=== PATIENT | female | born 1945 | race Caucasian/White ===

== ENCOUNTER 2023-09-26 03:53 | Observation (INO) | payer MEDICARE ==
[2023-09-26] MEDS ORDERED: NALOXONE 0.4 MG/ML 1 ML VIAL IV PRN (04:29)
--- NOTE | 2023-09-26 04:29 | ED ---
General Adult HPI - General Chief complaint: Recheck/Abnormal Lab/Rx Stated complaint: Peg tube malfunction Time Seen by Provider: 09/26/23 03:55 Source: patient, EMS Mode of arrival: EMS Limitations: no limitations - History of Present Illness Initial comments: 78-year-old female with recent history of ischemic stroke converted to hemorrhagic status post TNK who presents to the emergency department from [facility] on the [place]. She had difficulty with her swallow screen after her stroke and therefore a PEG tube was placed on September 11 at [facility] where she received majority of her care. She was then transferred to [facility] for rehab. It is reported the patient has been taking some food by mouth but is mostly dependent on her feeding tube. She accidentally her tube this evening and it was reported that the physician on-call requested that she be transferred to the hospital she does require this tube. Patient cannot provide much history and therefore majority is obtained from the patient's record as well as discussion with the patient's nurse at [facility]. - Related Data Allergies Allergy/AdvReac Type Severity Reaction Status Date / Time No Known Allergies Allergy Verified 09/26/23 04:03 Review of Systems ROS Statement: Those systems with pertinent positive or pertinent negative responses have been documented in the HPI. ROS Other: All systems not noted in ROS Statement are negative. Past Medical History Past Medical History: CVA/TIA, GERD/Reflux, Hyperlipidemia, Hypertension, Osteoarthritis (OA) History of Any Multi-Drug Resistant Organisms: None Reported Past Psychological History: No Psychological Hx Reported Smoking Status: Never smoker Past Alcohol Use History: None Reported Past Drug Use History: None Reported General Exam Limitations: altered mental status General appearance: alert, in no apparent distress Head exam: Present: atraumatic, normocephalic, normal inspection Eye exam: Present: normal appearance, PERRL, EOMI. Absent: scleral icterus, conjunctival injection, periorbital swelling ENT exam: Present: mucous membranes dry GI/Abdominal exam: Present: other (PEG tube site covered by a bandage. No active bleeding or drainage) Neurological exam: Present: alert, other (confused) Course Vital Signs 09/26/23 09/26/23 03:54 05:21 Temperature 98.3 F Pulse Rate 100 100 Respiratory 19 18 Rate Blood Pressure 130/83 137/95 O2 Sat by Pulse 98 98 Oximetry Medical Decision Making - Medical Decision Making Was pt. sent in by a medical professional or institution (MICHELE Bains, REGISTERED NURSE [employer], urgent care, hospital, or half-way...) When possible be specific @ -Yes patient was sent in by [facility] the [place] Did you speak to anyone other than the patient for history (EMS, parent, family, police, friend...)? What history was obtained from this source @ -Spoke with the patient's nurse at [facility] Did you review nursing and triage notes (agree or disagree)? Why? @ -I reviewed and agree with nursing and triage notes Were old charts reviewed (outside hosp., previous admission, EMS record, old EKG, old radiological studies, urgent care reports/EKG's, half-way records)? Report findings @ -I reviewed the patient's chart from [facility] Differential Diagnosis (chest pain, altered mental status, abdominal pain women, abdominal pain men, vaginal bleeding, weakness, fever, dyspnea, syncope, headache, dizziness, GI bleed, back pain, seizure, CVA, palpatations, mental health, musculoskeletal)? @ -PEG tube dislodgment, malfunctioning PEG tube EKG interpreted by me (3pts min.). @ -Not done X-rays interpreted by me (1pt min.). @ -None done CT interpreted by me (1pt min.). @ -None done U/S interpreted by me (1pt. min.). @ -None done What testing was considered but not performed or refused? (CT, X-rays, U/S, labs)? Why? @ -None What meds were considered but not given or refused? Why? @ -None Did you discuss the management of the patient with other professionals (professionals i.e. MICHELE Bains, [employer]ISTERED NURSE [employer], lab, RT, psych nurse, social secretary, construction checker, teacher, juvenile justice officer, correctional case records supervisor)? Give summary @ -I spoke with Dr. Burks and informed him that the tube was less than 4 weeks old. He agrees that the tube should be replaced in the OR Was smoking cessation discussed for >3mins.? @ -No Was critical care preformed (if so, how long)? @ -No Were there social determinants of health that impacted care today? How? (Homelessness, low income, unemployed, alcoholism, drug addiction, transportation, low edu. Level, literacy, decrease access to med. care, fpc, rehab)? @ -Patient residing at [facility] Was there de-escalation of care discussed even if they declined (Discuss DNR or withdrawal of care, Hospice)? DNR status @ -No What co-morbidities impacted this encounter? (DM, HTN, Smoking, COPD, CAD, C ancer, CVA, ARF, Chemo, Hep., AIDS, mental health diagnosis, sleep apnea, morbid obesity)? @ -CVA Was patient admitted / discharged? Hospital course, mention meds given and route, prescriptions, significant lab abnormalities, going to OR and other pertinent info. @ -Upon arrival patient was placed into room 7. I did review the patient's tr ansfer packet and spoke with the nurse at [facility] who states that the G-tube was placed on September 11. As the tube is less than 4 weeks old I did call and speak with Dr. Burks who states that the patient needs to go to the OR for replacement. Bridging orders are placed for his service. Patient continues to be nothing by mouth Undiagnosed new problem with uncertain prognosis? @ -No Drug Therapy requiring intensive monitoring for toxicity (Heparin, Nitro, Insulin, Cardizem)? @ -No Were any procedures done? @ -No Diagnosis/symptom? @ -Acute PEG tube dislodgment, status post CVA Acute, or Chronic, or Acute on Chronic? @ -Acute Uncomplicated (without systemic symptoms) or Complicated (systemic symptoms)? @ -Uncomplicated Side effects of treatment? @ -No Exacerbation, Progression, or Severe Exacerbation? @ -No Poses a threat to life or bodily function? How? (Chest pain, [place], [place], pneumonia, PE, COPD, DKA, ARF, appy, cholecystitis, CVA, Diverticulitis, Homicidal, Suicidal, threat to staff... and all critical care pts) @ -No Disposition Clinical Impression: PEG tube malfunction Disposition: ADMITTED IP TO THIS [facility] Condition: Stable Is patient prescribed a controlled substance at d/c from ED?: No Time of Disposition: :29 Decision to Admit Reason: Admit from EC Decision Date: 09/26/23 Decision Time: 04:29
[2023-09-26] MEDS ORDERED: PHENYLEPHRINE-0.9% NACL SYG 1,000 MCG/10 ML SYRINGE ONE (07:45)
[2023-09-26] MEDS ORDERED: PROPOFOL 10 MG/ML 20 ML VIAL IV ONE (07:45)
--- NOTE | 2023-09-26 07:52 | P.GSHP ---
History of Present Illness H&P Date: 09/26/23 Chief Complaint: PEG tube malfunction 70-year-old female here after recent stroke. Patient had a PEG tube placed. Unfortunately she was at rehab and accidentally the tube was removed. Patient is confused. No abdominal pain currently. - Review of Systems ROS unobtainable: Reports: due to mental status Past Medical History Past Medical History: CVA/TIA, GERD/Reflux, Hyperlipidemia, Hypertension, Osteoarthritis (OA) History of Any Multi-Drug Resistant Organisms: None Reported Past Psychological History: No Psychological Hx Reported Smoking Status: Never smoker Past Alcohol Use History: None Reported Past Drug Use History: None Reported Medications and Allergies Allergies Allergy/AdvReac Type Severity Reaction Status Date / Time No Known Allergies Allergy Verified 09/26/23 04:03 Surgical - Exam Vital Signs Temp Pulse Resp BP Pulse Ox 98.3 F 100 19 130/83 98 09/26/23 03:54 09/26/23 03:54 09/26/23 03:54 09/26/23 03:54 09/26/23 03:54 Physical exam: General: Well-developed, well-nourished HEENT: Normocephalic, sclerae nonicteric Abdomen: Nontender, nondistended, left upper quadrant PEG tube site Extremities: No edema Neuro: Alert and oriented Assessment and Plan (1) PEG tube malfunction Narrative/Plan: Case was discussed with the ER staff. We'll proceed with EGD and PEG tube repla cement. Consent was obtained from the patient's daughter by phone. Current Visit: Yes Status: Acute Code(s): K94.23 - GASTROSTOMY MALFUNCTION SNOMED Code(s): 536776922
[2023-09-26] MEDS ORDERED: LACTATED RINGERS 1,000 ML IV ONE ×2 (07:54)
--- NOTE | 2023-09-26 08:03 | P.PCN ---
Date of Procedure: 09/26/23 Procedure(s) Performed: Preoperative Dx: PEG tube malfunction Postoperative Dx: Same Procedure: EGD with PEG tube replacement Anesthesia: Sedation Endoscopist: Dr. Burks Specimens: None Endoscopic Procedure: The patient was on the endoscopy table in the left decubitus position. The Olympus gastroscope was inserted into the oropharynx and passed under direct visualization to the region of the third portion of the duodenum. From that point the scope was slowly withdrawn inspecting all surfaces carefully. The PEG tube placement was quite high in the left upper quadrant immediately adjacent to the left costal margin. The defect in the anterior wall the stomach was seen. An 18-Danish balloon replacement tube was able to be replaced without difficulty. The balloon was inflated with 10 mL. The patient had a small hiatal hernia. The remainder the study was normal. The patient was then taken to the recovery room in stable condition per anesthesia guidelines. Recommendations: May resume feeds and medications through PEG tube. May discharge.
[2023-09-26 10:09] VITALS: BP 121/65; PULSE 92; RESP 19; TEMP 97.8
--- NOTE | 2023-09-26 12:46 | P.CONS ---
History of Present Illness - Reason for Consult Consult date: 09/26/23 medical management - History of Present Illness History of present illness; patient 78-year-old lady with past medical history significant for CVA who is currently a resident of a rehab facility who pres ented to the ER for PEG tube dislodgment. Patient PEG tube was placed at [facility], patient is reliant on her nutrition through PEG tube. Patient PEG tube got pulled out accidentally and patient had to be transferred to the ER for PEG tube to be replaced. Patient was admitted to general surgery and plans the patient to undergo PEG tube placement today. Internal medicine were consulted for medical management. Lab work done at time of admission WBC 10.8 hemoglobin 13.9, platelet count 259, sodium 100 0.2, BUNs 19.5, creatinine 0.4, REVIEW OF SYSTEMS: CONSTITUTIONAL: No fever, no malaise, no fatigue. HEENT: No recent visual problems or hearing problems. Denied any sore throat. CARDIOVASCULAR: No chest pain, orthopnea, PND, no palpitations, no syncope. PULMONARY: No shortness of breath, no cough, no hemoptysis. GASTROINTESTINAL: No diarrhea, no nausea, no vomiting, no abdominal pain. NEUROLOGICAL: No headaches, no weakness, no numbness. HEMATOLOGICAL: Denies any bleeding or petechiae. GENITOURINARY: Denies any burning micturition, frequency, or urgency. MUSCULOSKELETAL/RHEUMATOLOGICAL: Denies any joint pain, swelling, or any muscle pain. ENDOCRINE: Denies any polyuria or polydipsia. The rest of the 14-point review of systems is negative. PHYSICAL EXAMINATION: GENERAL: The patient is alert and oriented x3, not in any acute distress. Well developed, well nourished. HEENT: Pupils are round and equally reacting to light. EOMI. No scleral icterus. No conjunctival pallor. Normocephalic, atraumatic. No pharyngeal erythema. No thyromegaly. CARDIOVASCULAR: S1 and S2 present. No murmurs, rubs, or gallops. PULMONARY: Chest is clear to auscultation, no wheezing or crackles. ABDOMEN: Soft, nontender, nondistended, normoactive bowel sounds. No palpable o rganomegaly. MUSCULOSKELETAL: No joint swelling or deformity. EXTREMITIES: No cyanosis, clubbing, or pedal edema. NEUROLOGICAL: Gross neurological examination did not reveal any focal deficits. SKIN: No rashes. Assessment and plan PEG tube dislodgment History of CVA Hyperlipidemia Hypertension Monitor vital signs Monitor CBC Monitor CMP Patient to undergo EGD with PEG tube placement today Resume home meds Gen. surgery following Labs and medication were reviewed.. Continue same treatment. Continue with symptomatic treatment. Resume home medication. Monitor labs and vitals. DVT and GI prophylaxis. Further recommendations as per clinical course of the patient Dictation was produced using [employer] dictation software. please excuse any grammatical, word or spelling errors. Past Medical History Past Medical History: CVA/TIA, GERD/Reflux, Hyperlipidemia, Hypertension, Osteoarthritis (OA) History of Any Multi-Drug Resistant Organisms: None Reported Past Psychological History: No Psychological Hx Reported Smoking Status: Never smoker Past Alcohol Use History: None Reported Past Drug Use History: None Reported Medications and Allergies Home Medications Medication Instructions Recorded Confirmed Type Acetaminophen Tab [Tylenol] 650 mg PO Q6H PRN 09/26/23 09/26/23 History Atorvastatin [Lipitor] 40 mg PEG/G-TUBE HS 09/26/23 09/26/23 History Clotrimazole/Betameth Cream 1 applic TOPICAL Q12H 09/26/23 09/26/23 History [Lotrisone] Docusate Oral Soln [Colace Oral 100 mg PEG/G-TUBE Q12H 09/26/23 09/26/23 History Soln] Famotidine [Pepcid] 20 mg PEG/G-TUBE DAILY 09/26/23 09/26/23 History Metoprolol Tartrate [Lopressor] 25 mg PEG/G-TUBE BID 09/26/23 09/26/23 History Sennosides [Senokot] 8.6 mg PEG/G-TUBE HS 09/26/23 09/26/23 History Allergies Allergy/AdvReac Type Severity Reaction Status Date / Time No Known Allergies Allergy Verified 09/26/23 11:28 Physical Exam Vitals: Vital Signs Temp Pulse Pulse Resp BP BP Pulse Ox 09/26/23 08:43 97.8 F 92 19 121/65 96 09/26/23 05:21 100 18 137/95 98 09/26/23 03:54 98.3 F 100 19 130/83 98 Intake and Output 09/25/23 09/26/23 09/26/23 22:59 06:59 14:59 Intake Total 200 Balance 200 Intake: IV 200 Other: # Voids 1 # Bowel Movements 1 Weight 72.575 kg
[2023-09-26] MEDS ORDERED: DOCUSATE ORAL SOLN 100 MG/10 ML CUP PEG/G-TUBE SCH (13:00)
[2023-09-26] MEDS ORDERED: FAMOTIDINE 20 MG TAB PEG/G-TUBE SCH (13:00)
[2023-09-26] MEDS ORDERED: METOPROLOL TARTRATE 25 MG TAB PEG/G-TUBE SCH (13:00)
[2023-09-26] MEDS ORDERED: ATORVASTATIN 40 MG TAB PEG/G-TUBE SCH (21:00)
[2023-09-26] MEDS ORDERED: SENNOSIDES 8.6 MG TAB PEG/G-TUBE SCH (21:00)
== END 2023-09-26 14:19 ==
LOC: EC 03:53 → 4SSUR 04:29
PROVIDERS: ADMIT Surgery; ATTEND Surgery
DX: K94.23 Gastrostomy malfunction (principal); K44.9 Diaphragmatic hernia without obstruction or gangrene; K21.9 Gastro-esophageal reflux disease without esophagitis; E78.5 Hyperlipidemia, unspecified; I10 Essential (primary) hypertension; Z86.73 Personal history of transient ischemic attack (TIA), and cerebral infarction without residual deficits; Z79.899 Other long term (current) drug therapy
CPT/HCPCS: 99284; 43246; G0378; J2704; J2371

== ENCOUNTER 2023-10-30 12:58 | Inpatient (IN) | payer MEDICARE ==
[2023-10-30] MEDS ORDERED: SODIUM CHLORIDE 0.9% 500 ML 500 ML IV STA (13:03)
--- NOTE | 2023-10-30 13:07 | ED ---
General Adult HPI - General Stated complaint: TIA Time Seen by Provider: 10/30/23 12:58 Source: patient, RN notes reviewed, old records reviewed - History of Present Illness Initial comments: This is a 78-year-old female with past medical history significant for CVA. According to EMS patient was last seen at 9 AM and when EMS arrived family stated that she had droopiness on the right side of her face and slurred speech but that completely resolved before EMSs arrival. Patient then was in the ambulance and started to say she felt a little lightheaded when all of a sudden she started having a seizure and EMS gave the patient 5 of Versed IV. Since then the patient has been unresponsive and unable to tell if this is post ictal or from the Versed or combination. - Related Data Home Medications Medication Instructions Recorded Confirmed Acetaminophen Tab [Tylenol] 650 mg PO Q6H PRN 09/26/23 09/26/23 Atorvastatin [Lipitor] 40 mg PEG/G-TUBE HS 09/26/23 09/26/23 Clotrimazole/Betameth Cream 1 applic TOPICAL Q12H 09/26/23 09/26/23 [Lotrisone] Docusate Oral Soln [Colace Oral 100 mg PEG/G-TUBE Q12H 09/26/23 09/26/23 Soln] Famotidine [Pepcid] 20 mg PEG/G-TUBE DAILY 09/26/23 09/26/23 Metoprolol Tartrate [Lopressor] 25 mg PEG/G-TUBE BID 09/26/23 09/26/23 Sennosides [Senokot] 8.6 mg PEG/G-TUBE HS 09/26/23 09/26/23 Allergies Allergy/AdvReac Type Severity Reaction Status Date / Time No Known Allergies Allergy Verified 09/26/23 11:28 Review of Systems ROS Statement: Those systems with pertinent positive or pertinent negative responses have been documented in the HPI. ROS Other: All systems not noted in ROS Statement are negative. Past Medical History Past Medical History: CVA/TIA, GERD/Reflux, Hyperlipidemia, Hypertension, Osteoarthritis (OA) History of Any Multi-Drug Resistant Organisms: None Reported Past Psychological History: No Psychological Hx Reported Smoking Status: Never smoker Past Alcohol Use History: None Reported Past Drug Use History: None Reported General Exam - General Exam Comments Initial Comments: GENERAL: Patient is well-developed and well-nourished. Patient is nontoxic and well- hydrated and is in no acute distress. ENT: Neck is soft and supple. No significant lymphadenopathy is noted. Oropharynx is clear. Moist mucous membranes. Neck has full range of motion without eliciting any pain. EYES: The sclera were anicteric and conjunctiva were pink and moist. Extraocular movements were intact and pupils were equal round and reactive to light. Eyelids were unremarkable. PULMONARY: Unlabored respirations. Good breath sounds bilaterally. No audible rales rhonchi or wheezing was noted. CARDIOVASCULAR: There is a regular rate and rhythm without any murmurs gallops or rubs. ABDOMEN: Soft and nontender with normal bowel sounds. SKIN: Skin is clear with no lesions or rashes and otherwise unremarkable. NEUROLOGIC: Patient is unresponsive at this time. Cranial nerves II through XII are grossly intact. Motor and sensory are also intact. Normal speech, volume and content. Symmetrical smile. MUSCULOSKELETAL: Normal extremities with adequate strength and full range of motion. No lower extremity swelling or edema. No calf tenderness. LYMPHATICS: No significant lymphadenopathy is noted PSYCHIATRIC: Unable to assess Course Vital Signs 10/30/23 10/30/23 10/30/23 13:01 13:15 13:30 Temperature 96.6 F L Pulse Rate 74 75 66 Respiratory 18 22 20 Rate Blood Pressure 96/70 137/76 O2 Sat by Pulse 90 L 98 100 Oximetry Medical Decision Making - Medical Decision Making EKG is interpreted by myself. EKG shows a sinus rhythm with occasional PAC at 75 bpm NM interval 160 QRS is 89 QT interval 410 QTC is 438. Patient's EKG shows no ST segment elevation or depression. Was pt. sent in by a medical professional or institution (, PA, ENVIRONMENTAL HEALTH TECHNOLOGIST, urgent care, hospital, or prison...) When possible be specific @ -No Did you speak to anyone other than the patient for history (EMS, parent, family, police, friend...)? What history was obtained from this source @ -EMS gave all the history since the patient was unable to speak to us on arrival and no family was with Did you review nursing and triage notes (agree or disagree)? Why? @ -I reviewed and agree with nursing and triage notes Were old charts reviewed (outside hosp., previous admission, EMS record, old EKG, old radiological studies, urgent care reports/EKG's, prison records)? Report findings @ -Others reviewed prior charts with prior laboratories patient Differential Diagnosis (chest pain, altered mental status, abdominal pain women, abdominal pain men, vaginal bleeding, weakness, fever, dyspnea, syncope, headache, dizziness, GI bleed, back pain, seizure, CVA, palpatations, mental health, musculoskeletal)? @ -Differential Seizure: Recurrent seizure disorder, febrile seizure, alcohol withdrawal, stimulants, meningitis, encephalitis, intercranial hemorrhage, intracranial tumor, stroke, eclampsia, thyrotoxicosis, hypocalcemia, hyponatremia, hypernatremia, hypomagnesemia, psychogenic, this is not meant to be an all-inclusive list. EKG interpreted by me (3pts min.). @ -As above X-rays interpreted by me (1pt min.). @ -Chest x-ray shows no acute abnormality CT interpreted by me (1pt min.). @ -CT of the brain shows no acute abnormality. CT angios shows no acute abnormality. U/S interpreted by me (1pt. min.). @ -None done What testing was considered but not performed or refused? (CT, X-rays, U/S, labs)? Why? @ -None What meds were considered but not given or refused? Why? @ -None Did you discuss the management of the patient with other professionals (professionals i.e. , PA, ENVIRONMENTAL HEALTH TECHNOLOGIST, lab, RT, psych nurse, social services technician, motorcycle mechanic, teacher, surveillance dual rate officer, correctional casework specialist)? Give summary @ -[facility]. I spoke with Dr. Estrada and he agreed to see the patient Was smoking cessation discussed for >3mins.? @ -No Was critical care preformed (if so, how long)? @ -No Were there social determinants of health that impacted care today? How? (Homelessness, low income, unemployed, alcoholism, drug addiction, transportation, low edu. Level, literacy, decrease access to med. care, longterm, rehab)? @ -No Was there de-escalation of care discussed even if they declined (Discuss DNR or withdrawal of care, Hospice)? DNR status @ -No What co-morbidities impacted this encounter? (DM, HTN, Smoking, COPD, CAD, Cancer, CVA, ARF, Chemo, Hep., AIDS, mental health diagnosis, sleep apnea, mor bid obesity)? @ -None Was patient admitted / discharged? Hospital course, mention meds given and route, prescriptions, significant lab abnormalities, going to OR and other pertinent info. @ -Patient initially was unresponsive but as the medication wore off and the postictal state resolved she was alert and nourished 4 and without complaints. Patient is an age at this time was 0. [facility] Undiagnosed new problem with uncertain prognosis? @ -No Drug Therapy requiring intensive monitoring for toxicity (Heparin, Nitro, Insulin, Cardizem)? @ -No Were any procedures done? @ -No Diagnosis/symptom? @ -New-onset seizure Acute, or Chronic, or Acute on Chronic? @ -Acute Uncomplicated (without systemic symptoms) or Complicated (systemic symptoms)? @ -Complicated Side effects of treatment? @ -No Exacerbation, Progression, or Severe Exacerbation? @ -No Poses a threat to life or bodily function? How? (Chest pain, [place], DC, pneumonia, PE, COPD, DKA, ARF, appy, cholecystitis, CVA, Diverticulitis, Homicidal, Suicidal, threat to staff... and all critical care pts) @ -Yes this could lead to some end organ dysfunction Diagnosis/symptom? @ -TIA Acute, or Chronic, or Acute on Chronic? @ -Acute Uncomplicated (without systemic symptoms) or Complicated (systemic symptoms)? @ -Complicated Side effects of treatment? @ -none Exacerbation, Progression, or Severe Exacerbation] @ -no Poses a threat to life or bodily function? @ -This could lead to a stroke and morbidity or mortality - Lab Data Result diagrams: 10/30/23 13:08 10/30/23 13:08 Lab Results 10/30/23 10/30/23 10/30/23 Range/Units 13:08 13:08 13:08 WBC 7.6 (3.8-10.6) k/uL RBC 4.42 (3.80-5.40) m/uL Hgb 13.1 (11.4-16.0) gm/dL Hct 40.2 (34.0-46.0) % MCV 91.0 (80.0-100.0) fL MCH 29.6 (25.0-35.0) pg MCHC 32.5 (31.0-37.0) g/dL RDW 14.1 (11.5-15.5) % Plt Count 237 (150-450) k/uL MPV 11.0 Neutrophils % 70 % Lymphocytes % 22 % Monocytes % 4 % Eosinophils % 2 % Basophils % 0 % Neutrophils # 5.3 (1.3-7.7) k/uL Lymphocytes # 1.7 (1.0-4.8) k/uL Monocytes # 0.3 (0-1.0) k/uL Eosinophils # 0.1 (0-0.7) k/uL Basophils # 0.0 (0-0.2) k/uL PT 11.2 (10.0-12.5) sec INR 1.0 (<1.2) APTT 21.7 L (22.0-30.0) sec Sodium 135 L (137-145) mmol/L Potassium 3.5 (3.5-5.1) mmol/L Chloride 105 (98-107) mmol/L Carbon Dioxide 26 (22-30) mmol/L Anion Gap 4 mmol/L BUN 14 (7-17) mg/dL Creatinine 0.32 L (0.52-1.04) mg/dL Est GFR (CKD-EPI)AfAm >90 (>60 ml/min/1.73 sqM) Est GFR (CKD-EPI)NonAf >90 (>60 ml/min/1.73 sqM) Glucose 114 H (74-99) mg/dL Calcium 8.6 (8.4-10.2) mg/dL Total Bilirubin 0.5 (0.2-1.3) mg/dL AST 21 (14-36) U/L ALT 14 (4-34) U/L Alkaline Phosphatase 76 (38-126) U/L Creatine Kinase 28 L (30-135) U/L Troponin I (0.000-0.034) ng/mL Total Protein 6.0 L (6.3-8.2) g/dL Albumin 3.2 L (3.5-5.0) g/dL 10/30/23 Range/Units 13:08 WBC (3.8-10.6) k/uL RBC (3.80-5.40) m/uL Hgb (11.4-16.0) gm/dL Hct (34.0-46.0) % MCV (80.0-100.0) fL MCH (25.0-35.0) pg MCHC (31.0-37.0) g/dL RDW (11.5-15.5) % Plt Count (150-450) k/uL MPV Neutrophils % % Lymphocytes % % Monocytes % % Eosinophils % % Basophils % % Neutrophils # (1.3-7.7) k/uL Lymphocytes # (1.0-4.8) k/uL Monocytes # (0-1.0) k/uL Eosinophils # (0-0.7) k/uL Basophils # (0-0.2) k/uL PT (10.0-12.5) sec INR (<1.2) APTT (22.0-30.0) sec Sodium (137-145) mmol/L Potassium (3.5-5.1) mmol/L Chloride (98-107) mmol/L Carbon Dioxide (22-30) mmol/L Anion Gap mmol/L BUN (7-17) mg/dL Creatinine (0.52-1.04) mg/dL Est GFR (CKD-EPI)AfAm (>60 ml/min/1.73 sqM) Est GFR (CKD-EPI)NonAf (>60 ml/min/1.73 sqM) Glucose (74-99) mg/dL Calcium (8.4-10.2) mg/dL Total Bilirubin (0.2-1.3) mg/dL AST (14-36) U/L ALT (4-34) U/L Alkaline Phosphatase (38-126) U/L Creatine Kinase (30-135) U/L Troponin I <0.012 (0.000-0.034) ng/mL Total Protein (6.3-8.2) g/dL Albumin (3.5-5.0) g/dL Disposition Clinical Impression: Transient cerebral ischemia, New onset seizure Disposition: ADMITTED IP TO THIS [facility] Instructions (If sedation given, give patient instructions): Seizure/Epilepsy Discharge Instructions & Follow-Up Referrals: Omari Soto MD [Primary Care Provider] - 1-2 days Time of Disposition: 14:52
[2023-10-30 13:18] LABS: Basophils % (A) 0 %; Eosinophils # (A) 0.1 k/uL (0-0.7); Eosinophils % (A) 2 %; HCT 40.2 % (34.0-46.0); HGB 13.1 gm/dL (11.4-16.0); Lymphocytes # (A) 1.7 k/uL (1.0-4.8); Lymphocytes % (A) 22 %; MCH 29.6 pg (25.0-35.0); MCHC 32.5 g/dL (31.0-37.0); Monocytes # (A) 0.3 k/uL (0-1.0); Monocytes % (A) 4 %; Neutrophils # (A) 5.3 k/uL (1.3-7.7); Neutrophils % (A) 70 %; Platelet Count 237 k/uL (150-450); RBC 4.42 m/uL (3.80-5.40); RDW 14.1 % (11.5-15.5); WBC 7.6 k/uL (3.8-10.6)
[2023-10-30 13:39] LABS: Prothrombin Time 11.2 sec (10.0-12.5)
[2023-10-30 13:44] LABS: ALT 14 U/L (4-34); AST 21 U/L (14-36); African American GFR (CKD) >90 (>60 ml/min/1.73 sqM); Albumin 3.2 g/dL (3.5-5.0); Alkaline Phosphatase 76 U/L (38-126); Anion Gap 4 mmol/L; Blood Urea Nitrogen 14 mg/dL (7-17); Calcium 8.6 mg/dL (8.4-10.2); Carbon Dioxide 26 mmol/L (22-30); Chloride 105 mmol/L (98-107); Creatine Kinase 28 U/L (30-135); Glucose 114 mg/dL (74-99); Non-African American GFR(CKD) >90 (>60 ml/min/1.73 sqM); Potassium 3.5 mmol/L (3.5-5.1); Sodium 135 mmol/L (137-145); Total Bilirubin 0.5 mg/dL (0.2-1.3)
[2023-10-30 13:46] LABS: Partial Thromboplastin Time 21.7 sec (22.0-30.0)
--- NOTE | 2023-10-30 13:46 | CT ---
EXAMINATION TYPE: CT brain wo con DATE OF EXAM: 10/30/2023 HISTORY: CODE STROKE. Acute onset neuro deficit. CT DLP: 1091.7 mGycm. Automated Exposure Control for Dose Reduction was Utilized. TECHNIQUE: CT scan of the head is performed without contrast. COMPARISON: None. FINDINGS: There is no acute intracranial hemorrhage or midline shift identified. There is mild to m oderate diffuse ventricular and sulcal prominence consistent with diffuse age-related cerebral atroph y. There is old infarct in the right parietal occipital lobe superiorly. The globes are intact and t he visualized sinuses are clear. IMPRESSION: No acute intracranial hemorrhage or midline shift. If clinical concern for acute stroke versus further investigation with MRI study may BE warranted.
--- NOTE | 2023-10-30 14:09 | CT ---
EXAMINATION TYPE: CT angio head neck DATE OF EXAM: 10/30/2023 HISTORY: Neuro deficit, acute stroke suspected. COMPARISON: None. CT DLP: 421.1 mGycm. Automated Exposure Control for Dose Reduction was Utilized. TECHNIQUE: CTA scan of the head and neck is performed without and with IV Contrast, patient injected with 65 ml mL of Isovue 370, axial images are obtained, coronal and sagittal reformatted images are reviewed. 3D reconstructed images are created on an independent workstation and reviewed. FINDINGS: Carotid/Vascular Structures: No significant plaque or stenosis in the arch or the 3 great vessels. Mi ld peripheral calcified plaque right carotid bulb without significant stenosis. More moderate periphe ral calcified plaque left carotid bulb extending into proximal internal carotid artery without signif icant stenosis. Patent external carotid artery without significant stenosis. There is dominant right vertebral artery filling the basilar artery. Distal left vertebral artery is hypoplastic or occluded. No arch vessel occlusion or aneurysm in the posterior circulation. Patent anterior communicating art gustavo. No large vessel occlusion or aneurysm in the anterior circulation Other: Dextro convex scoliosis centered in the thoracic spine. Disc calcification with disc space andrzej rowing at C3-C4 level. Grade 1 anterolisthesis C7 on T1. Mild to moderate spurring and disc space andrzej rowing C5-C6 and C6-C7 level. IMPRESSION: No significant stenosis in common or internal carotid arteries bilaterally. No large ves franck occlusion or aneurysm at the level of the [place]. NASCET criteria was used in interpretation of this exam?
--- NOTE | 2023-10-30 14:13 | XR ---
EXAMINATION TYPE: XR chest 1V DATE OF EXAM: 10/30/2023 COMPARISON: None HISTORY: Altered mental status TECHNIQUE: Single frontal view of the chest is obtained. FINDINGS: There is no focal air space opacity, pleural effusion, or pneumothorax seen. The cardiac silhouette size is within normal limits. The osseous structures are intact. Limited inspiration. At herosclerotic change of the aorta. Degenerative changes of the spine. Diffuse osteopenia. Chronic res orption of the right clavicle with postsurgical changes. Vascular crowding secondary to reduced inspi ration favored over basilar atelectasis. IMPRESSION: No acute process.
[2023-10-30] MEDS ORDERED: SODIUM CHLORIDE 0.9% 1,000 ML IV ONE (14:55)
[2023-10-30] MEDS ORDERED: levETIRAcetam IV 500 MG/5 ML VIAL IVP STA (15:02)
--- NOTE | 2023-10-30 15:18 | P.HPIM ---
History of Present Illness H&P Date: 10/30/23 Chief Complaint: Slurred speech * 78-year-old patient with past medical history significant for CVA, dysphagia status post PEG tube in place,, chronic left upper and lower extremity weakness from previous stroke, hypertension, presents to the emergency department with complains of slurred speech. Patient had symptom onset earlier this morning. Per daughter patient was at [facility] at the [facility] post CVA. Ultimately she was discharged home after insurance ran o ut. Per daughter patient has been significantly improved and was seen by speech therapy outpatient was started on dysphagia diet. Patient not getting any nutrition through PEG tube anymore. * Today patient therapist noted that she was more confused and had some left- sided facial droop and slurred speech. Daughter called her from work and noted that she was slurring. * In 2 to the ER patient had episode of seizure and unresponsiveness and was given Versed by EMS * Patient was accompanied by family at bedside * Workup initiated in ER included CBC which showed normal WBC count hemoglobin and platelet count, INR within normal limits, serum chemistry sodium 135 potassium 3.5 BUN 14 creatinine 0.32 glucose 114 troponin within normal limits * Patient had a CT head, CT angina head and neck done which was negative for large vessel occlusion * Patient was back at her baseline at the time of assessment neurology consulted for further evaluation REVIEW OF SYSTEMS: Slurred speech, facial droop CONSTITUTIONAL: No fever, no malaise, no fatigue. HEENT: No recent visual problems or hearing problems. Denied any sore throat. CARDIOVASCULAR: No chest pain, orthopnea, PND, no palpitations, no syncope. PULMONARY: No shortness of breath, no cough, no hemoptysis. GASTROINTESTINAL: No diarrhea, no nausea, no vomiting, no abdominal pain. NEUROLOGICAL: No headaches, no weakness, no numbness. HEMATOLOGICAL: Denies any bleeding or petechiae. GENITOURINARY: Denies any burning micturition, frequency, or urgency. MUSCULOSKELETAL/RHEUMATOLOGICAL: Denies any joint pain, swelling, or any muscle pain. ENDOCRINE: Denies any polyuria or polydipsia. PHYSICAL EXAMINATION: GENERAL: The patient is alert and oriented x3, nasal cannula in place HEENT: Pupils are round and equally reacting to light. EOMI Normocephalic, atraumatic. No pharyngeal erythema. No thyromegaly. CARDIOVASCULAR: S1 and S2 present. No murmurs, rubs, or gallops. PULMONARY: Chest is clear to auscultation, no wheezing or crackles. ABDOMEN: Soft, nontender, nondistended, normoactive bowel sounds. No palpable organomegaly. MUSCULOSKELETAL: No joint swelling or deformity. EXTREMITIES: No cyanosis, clubbing, or pedal edema. NEUROLOGICAL: Alert and oriented 3, left-sided facial droop noted, motor strength is 0/5 left upper extremity tube of 5 left lower extremity motor strength is 5 x 5 right upper and lower extremity SKIN: No rashes. Past Medical History Past Medical History: CVA/TIA, GERD/Reflux, Hyperlipidemia, Hypertension, Osteoarthritis (OA) History of Any Multi-Drug Resistant Organisms: None Reported Past Psychological History: No Psychological Hx Reported Smoking Status: Never smoker Past Alcohol Use History: None Reported Past Drug Use History: None Reported Medications and Allergies Home Medications Medication Instructions Recorded Confirmed Type Acetaminophen Tab [Tylenol] 650 mg PO Q6H PRN 09/26/23 09/26/23 History Atorvastatin [Lipitor] 40 mg PEG/G-TUBE HS 09/26/23 09/26/23 History Clotrimazole/Betameth Cream 1 applic TOPICAL Q12H 09/26/23 09/26/23 History [Lotrisone] Docusate Oral Soln [Colace Oral 100 mg PEG/G-TUBE Q12H 09/26/23 09/26/23 History Soln] Famotidine [Pepcid] 20 mg PEG/G-TUBE DAILY 09/26/23 09/26/23 History Metoprolol Tartrate [Lopressor] 25 mg PEG/G-TUBE BID 09/26/23 09/26/23 History Sennosides [Senokot] 8.6 mg PEG/G-TUBE HS 09/26/23 09/26/23 History Allergies Allergy/AdvReac Type Severity Reaction Status Date / Time No Known Allergies Allergy Verified 09/26/23 11:28 Physical Exam Vitals: Vital Signs Temp Pulse Resp BP Pulse Ox 10/30/23 13:30 66 20 137/76 100 10/30/23 13:15 75 22 96/70 98 10/30/23 13:01 96.6 F L 74 18 90 L Intake and Output 10/30/23 10/30/23 10/30/23 06:59 14:59 22:59 Other: Weight 71.486 kg Results CBC & Chem 7: 10/30/23 13:08 10/30/23 13:08 Labs: Abnormal Lab Results - Last 24 Hours (Table) 10/30/23 10/30/23 Range/Units 13:08 13:08 APTT 21.7 L (22.0-30.0) sec Sodium 135 L (137-145) mmol/L Creatinine 0.32 L (0.52-1.04) mg/dL Glucose 114 H (74-99) mg/dL Creatine Kinase 28 L (30-135) U/L Total Protein 6.0 L (6.3-8.2) g/dL Albumin 3.2 L (3.5-5.0) g/dL Assessment and Plan Assessment: Assessment and plan * Acute slurred speech History of CVA with rest and left upper and lower extremity weakness * Witnessed seizure per EMS * Hypertension * History of dysphagia status post PEG tube in place * In regards to CVA, continue neuro checks, CT head, CT angina head and neck completed, MRI brain ordered, EEG ordered neurology consulted * In regards to witnessed seizure continue patient on Keppra per neurology EEG ordered * In regards to history of hypertension continue permissive hypertension * Follow-up lipid profile ordered * CODE STATUS is no code Time with Patient: Greater than 30
[2023-10-30] MEDS: SODIUM CHLORIDE 0.9% 1,000 ML IV SCH (15:59)
--- NOTE | 2023-10-30 16:59 | P.CNNES ---
History of Present Illness Consult date: 10/30/23 Requesting physician: Dulce Aviles Reason for Consult: stroke/tia History of Present Illness: This is a 78-year-old woman in the emergency department because of left facial weakness dysarthria that has seizure-like activity. History was obtained from the patient daughter was at bedside. According to the daughter today around 11:45 AM patient had episode of left facial droop with dysarthria then 911 was called and had seizure-like activity during attendance of EMS. She was given 5mg IV Versed by EMS. She does not have seizure in the past. She had history of stroke that lead to bleed after TNK and followed-up with Spencer (Neurologist) and was notified to avoid antiplatelets and anticoagulation because of bleed. 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 Currently per daughter she is doing better compared to earlier. Patient denies of headaches, nausea or vomiting. It seems that the patient had a stroke in August 2023 and she was at [facility] and was given TNK then had bleeding after that and was given reversal. She was then taken to [facility]. Serum glucose 114, sodium is 135, calcium is 8.6. Some of the work-up during this hospital visit consisted of: CBC with differential is unremarkable CT of the head is reported as no acute intracranial hemorrhage or midline shift. If clinical concern for acute stroke versus further investigation with MRI study may be warranted. In the body report it mentions old infarct over the right parietal occipital superiorly. I personally reviewed the CT and agree old stroke over the left parietal>occipital region. There is no acute or subacute ischemia and no bleed. CTA head and neck is reported as no significant stenosis in the common or internal carotid artery bilaterally. No large vessel occlusion or aneurysm at the level [place]. EKG is reported as sinus rhythm with occasional supraventricular premature complexes. Borderline EKG. Seems a code stroke was activated by the ED team and that her symptoms resolved. No IV thrombolytic since symptoms resolved and risk outweigh benefits. Review of Systems The positive and negative as per HPI. Past Medical History Past Medical History: CVA/TIA, GERD/Reflux, Hyperlipidemia, Hypertension, Osteoa rthritis (OA) History of Any Multi-Drug Resistant Organisms: None Reported Past Psychological History: No Psychological Hx Reported Smoking Status: Never smoker Past Alcohol Use History: None Reported Past Drug Use History: None Reported Medications and Allergies Home Medications Medication Instructions Recorded Confirmed Type Atorvastatin [Lipitor] 40 mg PO HS 09/26/23 10/30/23 History Famotidine [Pepcid] 20 mg PO DAILY 09/26/23 10/30/23 History Metoprolol Tartrate [Lopressor] 25 mg PO BID 09/26/23 10/30/23 History Sertraline [Zoloft] 50 mg PO HS 10/30/23 10/30/23 History Allergies Allergy/AdvReac Type Severity Reaction Status Date / Time No Known Allergies Allergy Verified 10/30/23 15:52 Physical Examination - Vital Signs Vital Signs: Vital Signs Temp Pulse Resp BP Pulse Ox 10/30/23 16:00 97.3 F L 65 11 L 119/70 99 10/30/23 15:45 64 12 118/86 99 10/30/23 15:30 66 15 137/74 99 10/30/23 15:15 67 14 120/88 99 10/30/23 15:00 61 11 L 132/78 99 10/30/23 14:45 62 10 L 128/83 100 10/30/23 14:30 68 11 L 130/98 100 10/30/23 14:15 63 9 L 148/79 100 10/30/23 14:00 65 8 L 131/77 99 10/30/23 13:45 64 11 L 137/76 100 10/30/23 13:34 63 13 137/76 100 10/30/23 13:30 66 20 137/76 100 10/30/23 13:15 75 22 96/70 98 10/30/23 13:01 96.6 F L 74 18 90 L Intake and Output 10/30/23 10/30/23 10/30/23 06:59 14:59 22:59 Other: Weight 71.486 kg GENERAL: The patient is lying in bed and is not in acute distress. HENT: Supple neck. NEUROLOGICAL: Higher mental function: The patient is awake, alert, oriented to self and stated she is in the hospital. She is able to name objects (pen and watch). Patient is following simple commands. No aphasia and no neglect. Cranial nerves: The pupils are round, equal and reactive to light. Visual raymundo are full to confrontation throughout. Extraocular movement is intact no nystagmus is noted. Facial sensation is normal to touch throughout. The facial strength is mild left lower facial weakness. Hearing is moderately to severely decreased bilaterally to hand rub. Tongue is midline and moved [id number] without any difficulty. No dysarthria is noted. Shoulder shrug is normal bi laterally. Motor: The strength is left upper extremity is 2-3/5. Left lower proximal is 1, knee and distally is 2-3. Right side 5 over 5 throughout. Increase tone over the left side. Normal bulk. Cerebellum: Normal finger to nose on right. Weak on left so testing deferred. Sensation: Sensation is normal to touch throughout. Reflexes (right/left): brisk on the left. Normal on right. Plantars is mute on right and upgoing on the left. Results - Laboratory Findings CBC and BMP: 10/30/23 13:08 10/30/23 13:08 Abnormal Lab Findings: Abnormal Labs 10/30/23 10/30/23 13:08 13:08 APTT 21.7 L Sodium 135 L Creatinine 0.32 L Glucose 114 H Creatine Kinase 28 L Total Protein 6.0 L Albumin 3.2 L Assessment and Plan Assessment: A 78-year-old woman with history of stroke in August 2023 receive TNK then had hemorrhagic conversion then received reversal with residual left hemiparesis who presents because of dysarthria and left facial droop and later followed by seizures. New onset seizure Episode of dysarthria and left facial droop later followed by seizures: Either due to new onset seizures from cortical irritation from old stroke vs new onset stroke leading to seizure. Current CT shows right parietal > occipital encephalomalacia History of stroke in 08/2023 and received TNK that had hemorrhagic conversion then received reversal with residual left hemiparesis. Hypertension Plan: I ordered an EEG. I started the patient on Keppra 500mg bid even though this is new onset seizure especially since has encephalomalacia that increase risk for seizures. Loaded her with Keppra 1gm once. I resumed her home dose of Lipitor 40mg qhs. I will avoid use of antiplatelets since had history of brain bleed and was instructed by her outpatient neurologist (Dr. Palmer) to avoid them. But will pursue MRI Brain and if does have acute/subacute stroke will consider starting her on low dose ASA 81mg daily if felt benefit outweigh risk. Ordered MRI Brain, 2D echo. Lipid panel is ordered. Seizure precaution and pad Neuro checks Cardiac monitoring PT, OT and CARD PLAYER are consulted. Will defer the rest of medical management to the primary team. The plan is discussed with patient, her daughter who is at bedside and ED physician. Thank you for the consultation. Dr. Knapp will resume neurology service tomorrow A.M. Time with Patient: Greater than 30
--- NOTE | 2023-10-30 18:11 | MR ---
EXAMINATION TYPE: MR brain wo/w con DATE OF EXAM: 10/30/2023 5:02 PM COMPARISON: CT brain 10/30/2023 HISTORY: Left facial droop and dysarthria then seizure. CVA. CONTRAST: Patient received 7 mL intravenous Gadavist gadolinium contrast. Multiplanar and multispin-echo imaging of the brain was performed . Pre and post contrast enhanced i mages are obtained. The ventricles, basal cisterns and sulci overlying the cerebral convexities are mildly to moderately enlarged. There is evidence of mild periventricular white matter ischemic demyelination. Areas of the remote encephalomalacia involving the right parietal and right parieto-occipital region with peripheral hypointensity seen felt to reflect remote insult with peripheral hemosiderin depositi on. On the diffusion weighted data set there are dependent areas of scattered hyperintensity. No acute edema is seen on diffusion weighted imaging. There is no evidence for midline shift or mass effect. Acute intracranial hemorrhage or extra-axial collection is not evident. No enhancing lesions are seen. The paranasal sinuses and mastoid air cells are well-aerated. IMPRESSION: Areas of the remote encephalomalacia involving the right parietal and right parieto-occipital region with peripheral hypointensity seen felt to reflect remote insult/hemorrhage with peripheral hemosider in deposition. On the diffusion weighted data set there are dependent areas of scattered hyperintensi ty.
[2023-10-30] MEDS: levETIRAcetam 500 MG TAB PO SCH (19:44)
[2023-10-30] MEDS: ATORVASTATIN 40 MG TAB PO SCH (19:44)
[2023-10-30] MEDS: HEPARIN SODIUM,PORCINE 5,000 UNIT/ML 1 ML VIAL SQ SCH (19:44)
[2023-10-31] MEDS: SODIUM CHLORIDE 0.9% 1,000 ML IV SCH ×3 (01:12→19:53)
--- NOTE | 2023-10-31 01:59 | EEG ---
ELECTROENCEPHALOGRAM REPORT DATE OF SERVICE: 10/30/2023. CLINICAL HISTORY: This is a 78-year-old woman with a new onset seizure. The video EEG is obtained to evaluate for seizure epileptiform activity. RELEVANT MEDICATION: Versed 5 mg. EEG TYPE: A routine 21-channel EEG with video using the 10/20 electrode placement system. DESCRIPTION: Wakefulness is only obtained. During awake state, the background is asymmetrical, in which the left hemisphere, the background consists of low to moderate voltage, 7 to 8 hertz, while the right consists of 6 to 7 intermixed with delta activity. There was no physiological stage 2 sleep architecture. There is focal slowing over the right hemisphere, predominantly parietal, central, temporal, occipital regions. Interictal and ictal, none. ACTIVATION PROCEDURE: Photic stimulation did not evoke a posterior driving response. There is no abnormality during the photic stimulation. Hyperventilation is not performed. CLINICAL INTERPRETATION: This is an abnormal routine EEG. The background is asymmetrical, in which the left hemisphere is mild encephalopathic, while the right is mild to moderate. There is focal slowing over the right hemisphere suggestive of focal cerebral dysfunction. There is no epileptiform discharge, or seizure on the EEG. Clinical correlation is recommended. MMODL / IJN: [id number] /
[2023-10-31] MEDS: levETIRAcetam 500 MG TAB PO SCH ×2 (08:27→19:40)
[2023-10-31] MEDS: HEPARIN SODIUM,PORCINE 5,000 UNIT/ML 1 ML VIAL SQ SCH ×2 (08:27→19:40)
[2023-10-31] MEDS ORDERED: ACETAMINOPHEN TAB 325 MG TAB PO PRN (09:12)
[2023-10-31] MEDS: FAMOTIDINE 20 MG TAB PO SCH (12:19)
[2023-10-31] MEDS: METOPROLOL TARTRATE 25 MG TAB PO SCH ×2 (12:19→19:40)
[2023-10-31 12:36] LABS: LDL Cholesterol,Calculated 43.3 mg/dL (0.0-131.0)
--- NOTE | 2023-10-31 13:02 | P.PN ---
Subjective Progress Note Date: 10/31/23 * 78-year-old patient with past medical history significant for CVA, dysphagia status post PEG tube in place,, chronic left upper and lower extremity weakness from previous stroke, hypertension, presents to the emergency department with complains of slurred speech. Patient had symptom onset earlier this morning. Per daughter patient was at [facility] at the [facility] post CVA. Ultimately she was discharged home after insurance ran out. Per daughter patient has been significantly improved and was seen by speech therapy outpatient was started on dysphagia diet. Patient not getting any nutrition through PEG tube anymore. * Today patient therapist noted that she was more confused and had some left- sided facial droop and slurred speech. Daughter called her from work and noted that she was slurring. * In 2 to the ER patient had episode of seizure and unresponsiveness and was given Versed by EMS * Patient was accompanied by family at bedside * Workup initiated in ER included CBC which showed normal WBC count hemoglobin and platelet count, INR within normal limits, serum chemistry sodium 135 potassium 3.5 BUN 14 creatinine 0.32 glucose 114 troponin within normal limits * Patient had a CT head, CT angina head and neck done which was negative for large vessel occlusion * Patient was back at her baseline at the time of assessment neurology consulted for further evaluation * 10/31/2023: Patient seen and evaluated at bedside, patient appears at baseline, MRI brain reviewed, continue patient on IV hydration, patient has been seizure-free REVIEW OF SYSTEMS: Slurred speech resolved, facial droop resolved CONSTITUTIONAL: No fever, no malaise, no fatigue. HEENT: No recent visual problems or hearing problems. Denied any sore throat. CARDIOVASCULAR: No chest pain, orthopnea, PND, no palpitations, no syncope. PULMONARY: No shortness of breath, no cough, no hemoptysis. GASTROINTESTINAL: No diarrhea, no nausea, no vomiting, no abdominal pain. NEUROLOGICAL: No headaches, no weakness, no numbness. HEMATOLOGICAL: Denies any bleeding or petechiae. GENITOURINARY: Denies any burning micturition, frequency, or urgency. MUSCULOSKELETAL/RHEUMATOLOGICAL: Denies any joint pain, swelling, or any muscle pain. ENDOCRINE: Denies any polyuria or polydipsia. PHYSICAL EXAMINATION: GENERAL: The patient is alert and oriented x3, nasal cannula in place HEENT: Pupils are round and equally reacting to light. EOMI Normocephalic, atraumatic. No pharyngeal erythema. No thyromegaly. CARDIOVASCULAR: S1 and S2 present. No murmurs, rubs, or gallops. PULMONARY: Chest is clear to auscultation, no wheezing or crackles. ABDOMEN: Soft, nontender, nondistended, normoactive bowel sounds. No palpable organomegaly. MUSCULOSKELETAL: No joint swelling or deformity. EXTREMITIES: No cyanosis, clubbing, or pedal edema. NEUROLOGICAL: Alert and oriented 3, left-sided facial droop noted, motor strength is 0/5 left upper extremity, 2/ 5 left lower extremity motor strength is 5 x 5 right upper and lower extremity SKIN: No rashes. Objective - Vital Signs Vital signs: Vital Signs Temp 98.1 F 10/31/23 04:00 Pulse 70 10/31/23 12:20 Resp 16 10/31/23 12:20 BP 106/57 10/31/23 12:20 Pulse Ox 97 10/31/23 12:20 FiO2 Intake & Output 10/30/23 10/31/23 10/31/23 18:59 06:59 18:59 Intake Total 210 Output Total 300 0 Balance -300 210 Weight 71.486 kg Intake: IV 10 Invasive Line 1 10 Oral 200 Output: Urine 300 0 Other: # Voids 2 # Bowel Movements 1 1 - Labs CBC & Chem 7: 10/30/23 13:08 10/30/23 13:08 Labs: Abnormal Lab Results - Last 24 Hours (Table) 10/30/23 10/30/23 10/30/23 Range/Units 13:08 13:08 13:08 APTT 21.7 L (22.0-30.0) sec Sodium 135 L (137-145) mmol/L Creatinine 0.32 L (0.52-1.04) mg/dL Glucose 114 H (74-99) mg/dL Creatine Kinase 28 L (30-135) U/L Total Protein 6.0 L (6.3-8.2) g/dL Albumin 3.2 L (3.5-5.0) g/dL HDL Cholesterol 39.30 L (40.00-60.00) mg/dL Assessment and Plan Assessment: Assessment and plan * Acute slurred speech History of CVA with rest and left upper and lower extremity weakness * Witnessed seizure per EMS * Hypertension * History of dysphagia status post PEG tube in place * In regards to CVA, continue neuro checks, CT head, CT angina head and neck completed, MRI brain completed shows areas of remote encephalomalacia in the right parietal and right parieto-occipital region with hyperintensity seen and felt to reflect remote insult/MH with peripheral hemosiderin deposit * EEG ordered neurology consulted * In regards to witnessed seizure continue patient on Keppra per neurology EEG completed * In regards to history of hypertension , and tinea metoprolol * Follow-up lipid profile reviewed * Will need physical therapy occupational therapy evaluation * CODE STATUS is no code
--- NOTE | 2023-10-31 14:25 | P.PN ---
Subjective Progress Note Date: 10/31/23 The pt is a 78 y/o female who is seen in neurologic follow up on 2023, in collaboration with Janak Arenas, via teleneurology. The chart has been reviewed. The pt reportedly presented to the ER with left facial droop and slurred speech. She was also somewhat confused. The pt reportedly had a seizure while EMS was present. She was given Versed and brought to the ER. The pt has a history of right sided stroke, occurring around Thanksgiving time. The pt has residual left sided weakness. The infarct also involved hemorrhage following receiving TNK. EEG was performed yesterday. It was negative for seizure acitivity. MRI revealed no acute infarct. Objective - Vital Signs Vital signs: Vital Signs Temp 98.1 F 10/31/23 04:00 Pulse 70 10/31/23 12:20 Resp 16 10/31/23 12:20 BP 106/57 10/31/23 12:20 Pulse Ox 97 10/31/23 12:20 FiO2 Intake & Output 10/30/23 10/31/23 10/31/23 18:59 06:59 18:59 Intake Total 210 Output Total 300 0 Balance -300 210 Weight 71.486 kg Intake: IV 10 Invasive Line 1 10 Oral 200 Output: Urine 300 0 Other: # Voids 2 # Bowel Movements 1 1 - Exam General: The pt is reclining in the bed. She is well nourished and in no distress. She does report hip pain HEENT: Head is atraumatic, normocephalic. There is no scleral icterus. Fundus no visualized. Mucous membranes moist Neurological Exam Mental status: The pt is awake, alert and oriented x3. Speech is clear. There is no dysarthria or aphasia. Cranial nerves: Pupils are equal at 2mm and reactive. Visual raymundo full. EOMI. Facial sensation intact. No facial asymmetry. Hearing grossly intact. Shoulder shrug diminished on the left. Tongue protrudes midline. Motor: Right upper extremity strength 5/5. Left home based assistant 3-4/5. Triceps 3/5 - Labs CBC & Chem 7: 10/30/23 13:08 10/30/23 13:08 Labs: Abnormal Lab Results - Last 24 Hours (Table) 10/30/23 Range/Units 13:08 HDL Cholesterol 39.30 L (40.00-60.00) mg/dL Assessment and Plan Assessment: A 78-year-old woman with history of stroke in August 2023 receive TNK then had hemorrhagic conversion then received reversal with residual left hemiparesis who presents because of dysarthria and left facial droop and later followed by seizures. New onset seizure Episode of dysarthria and left facial droop later followed by seizures: Either due to new onset seizures from cortical irritation from old stroke vs new onset stroke leading to seizure. Current CT shows right parietal > occipital encephalomalacia History of stroke in 08/2023 and received TNK that had hemorrhagic conversion then received reversal with residual left hemiparesis. Hypertension Plan: 1. Stroke work up has been ordered 2. Continue Keppra 3. MRI negative for acute infarct 4. Await further test result 5. Continue seizure precautions Time with Patient: Less than 30
[2023-10-31] MEDS: ATORVASTATIN 40 MG TAB PO SCH (19:40)
[2023-10-31] MEDS: SERTRALINE 50 MG TAB PO SCH (19:40)
[2023-11-01] MEDS: SODIUM CHLORIDE 0.9% 1,000 ML IV SCH ×2 (04:46→19:14)
[2023-11-01] MEDS: HEPARIN SODIUM,PORCINE 5,000 UNIT/ML 1 ML VIAL SQ SCH ×2 (08:32→21:36)
[2023-11-01] MEDS: FAMOTIDINE 20 MG TAB PO SCH (08:32)
[2023-11-01] MEDS: METOPROLOL TARTRATE 25 MG TAB PO SCH ×2 (08:32→21:36)
[2023-11-01] MEDS: levETIRAcetam 500 MG TAB PO SCH ×2 (08:32→21:36)
[2023-11-01 09:51] LABS: HCT 35.2 % (34.0-46.0); HGB 11.6 gm/dL (11.4-16.0); MCHC 32.9 g/dL (31.0-37.0); MCV 91.1 fL (80.0-100.0); Mean Platelet Volume 8.6; Platelet Count 265 k/uL (150-450); RBC 3.87 m/uL (3.80-5.40); WBC 5.1 k/uL (3.8-10.6)
[2023-11-01 10:21] LABS: African American GFR (CKD) >90 (>60 ml/min/1.73 sqM); Anion Gap 5 mmol/L; Blood Urea Nitrogen 13 mg/dL (7-17); Calcium 8.3 mg/dL (8.4-10.2); Carbon Dioxide 28 mmol/L (22-30); Chloride 105 mmol/L (98-107); Glucose 96 mg/dL (74-99); Non-African American GFR(CKD) >90 (>60 ml/min/1.73 sqM); Potassium 3.3 mmol/L (3.5-5.1); Sodium 138 mmol/L (137-145)
[2023-11-01] MEDS ORDERED: POTASSIUM CHLORIDE ER 20 MEQ TAB.ER PO STA (11:30)
--- NOTE | 2023-11-01 11:31 | CA ---
Transthoracic Echo Report Name: Opal Mejia Age: 78 Gender: F : 1945 Exam Date: 10/31/2023 10:31 Exam Location: [facility] Ht (in): 66 Wt (lb): 157 Ordering Physician: Sanju Cain MD Attending/Referring Phys: Assistant Professor Of Dietetics Adriana Carver RD Procedure CPT: Indications: stroke Cardiac Hx: Technical Quality: Technically difficult study Contrast 1: Total Dose (mL): Contrast 2: Total Dose (mL): MEASUREMENTS (Male / Female) Normal Values 2D ECHO LV Diastolic Diameter PLAX 4.7 cm 4.2 - 5.9 / 3.9 - 5.3 cm LV Systolic Diameter PLAX 3.7 cm IVS Diastolic Thickness 0.7 cm 0.6 - 1.0 / 0.6 - 0.9 cm LVPW Diastolic Thickness 1.0 cm 0.6 - 1.0 / 0.6 - 0.9 cm LV Relative Wall Thickness 0.3 RV Internal Dim ED PLAX 2.7 cm LVOT Diameter 2.0 cm Aortic Root Diameter 2.8 cm LA Systolic Diameter LX 3.1 cm 3.0 - 4.0 / 2.7 - 3.8 cm LV Diastolic Volume MOD BP 46.1 cm??? 67 - 155 / 56 - 104 cm??? LV Systolic Volume MOD BP 17.5 cm??? 22 - 58 / 19 - 49 cm??? LV Ejection Fraction MOD BP 62.0 % >= 55 % LV Cardiac Index MOD BP 779.5 cm???/min???m??? LV Diastolic Volume MOD 4C 55.9 cm??? LV Systolic Volume MOD 4C 17.2 cm??? LV Ejection Fraction MOD 4C 69.2 % LV Cardiac Index MOD 4C 1054.7 cm???/min???m??? LV Diastolic Length 4C 6.7 cm LV Systolic Length 4C 5.7 cm LV Diastolic Volume MOD 2C 33.1 cm??? LV Systolic Volume MOD 2C 17.7 cm??? LV Ejection Fraction MOD 2C 46.5 % LV Cardiac Index MOD 2C 420.0 cm???/min???m??? LV Diastolic Length 2C 5.9 cm LV Systolic Length 2C 5.7 cm LA Volume 34.9 cm??? 18 - 58 / 22 - 52 cm??? LA Volume Index 19.0 cm???/m??? 16 - 28 cm???/m??? DOPPLER LVOT Peak Velocity 76.2 cm/s LVOT Peak Gradient 2.3 mmHg LVOT Velocity Time Integral 16.8 cm LVOT Stroke Volume 50.8 cm??? LVOT Stroke Volume Index 28.1 ml/m??? LVOT Cardiac Index 1385.5 cm???/min???m??? MV Peak Velocity 104.6 cm/s MV Peak Gradient 4.4 mmHg MV Mean Velocity 58.7 cm/s MV Mean Gradient 1.6 mmHg MV Velocity Time Integral 35.8 cm Mitral E Point Velocity 83.1 cm/s Mitral A Point Velocity 105.8 cm/s Mitral E to A Ratio 0.8 MV Deceleration Time 263.3 ms MV E' Velocity 5.0 cm/s Mitral E to MV E' Ratio 16.6 TR Peak Velocity 193.2 cm/s TR Peak Gradient 14.9 mmHg Right Ventricular Systolic Press 20.2 mmHg PV Peak Velocity 92.2 cm/s PV Peak Gradient 3.4 mmHg FINDINGS Left Ventricle Normal LV size and wall thickness. Left ventricular ejection fraction is estimated at 50-55 %. Right Ventricle Normal right ventricular size. RVSP= 24mmHg. Right Atrium Normal right atrial size. Left Atrium Normal left atrial size. Mitral Valve Structurally normal mitral valve. Trace MR. Aortic Valve Mildly calcified AV. Mild AI. Tricuspid Valve Structurally normal tricuspid valve. Mild TR. Pulmonic Valve Pulmonic valve not well visualized. Mild PI. Pericardium Normal pericardium. Aorta Normal size aortic root. CONCLUSIONS Technically limited views. Poor quality images LVEF 55% No significant wall motion abnormality MR, mild aortic insufficiency, calcific aortic valve Trace pericardial effusion Previewed by: Dr Molina Booker (Electronically Signed) Final Date: 01 November 2023 11:30
--- NOTE | 2023-11-01 11:32 | P.PN ---
Subjective Progress Note Date: 11/01/23 * 78-year-old patient with past medical history significant for CVA, dysphagia status post PEG tube in place,, chronic left upper and lower extremity weakness from previous stroke, hypertension, presents to the emergency department with complains of slurred speech. Patient had symptom onset earlier this morning. Per daughter patient was at [facility] at the [facility] post CVA. Ultimately she was discharged home after insurance ran out. Per daughter patient has been significantly improved and was seen by speech therapy outpatient was started on dysphagia diet. Patient not getting any nutrition through PEG tube anymore. * Today patient therapist noted that she was more confused and had some left- sided facial droop and slurred speech. Daughter called her from work and noted that she was slurring. * In 2 to the ER patient had episode of seizure and unresponsiveness and was given Versed by EMS * Patient was accompanied by family at bedside * Workup initiated in ER included CBC which showed normal WBC count hemoglobin and platelet count, INR within normal limits, serum chemistry sodium 135 potassium 3.5 BUN 14 creatinine 0.32 glucose 114 troponin within normal limits * Patient had a CT head, CT angina head and neck done which was negative for large vessel occlusion * Patient was back at her baseline at the time of assessment neurology consulted for further evaluation * 10/31/2023: Patient seen and evaluated at bedside, patient appears at baseline, MRI brain reviewed, continue patient on IV hydration, patient has been seizure-free * 11/01/2023: patient seen and evaluated at bedside, patient will need physical therapy occupational therapy evaluation for placement, discussed with patient daughter day would like patient to go to subacute rehab if possible. At this time continue patient on current antiseizure medications which will be continued at the time of discharge. Defer initiation of antiplatelet to Neurology . Potassium replaced. Patient would need to go to subacute rehab. Patient does not want to go back to [facility]. Echocardiogram pending REVIEW OF SYSTEMS: Slurred speech resolved, facial droop resolved CONSTITUTIONAL: No fever, no malaise, no fatigue. HEENT: No recent visual problems or hearing problems. Denied any sore throat. CARDIOVASCULAR: No chest pain, orthopnea, PND, no palpitations, no syncope. PULMONARY: No shortness of breath, no cough, no hemoptysis. GASTROINTESTINAL: No diarrhea, no nausea, no vomiting, no abdominal pain. NEUROLOGICAL: No headaches, no weakness, no numbness. HEMATOLOGICAL: Denies any bleeding or petechiae. GENITOURINARY: Denies any burning micturition, frequency, or urgency. MUSCULOSKELETAL/RHEUMATOLOGICAL: Denies any joint pain, swelling, or any muscle pain. ENDOCRINE: Denies any polyuria or polydipsia. PHYSICAL EXAMINATION: GENERAL: The patient is alert and oriented x3, nasal cannula in place HEENT: Pupils are round and equally reacting to light. EOMI Normocephalic, atraumatic. No pharyngeal erythema. No thyromegaly. CARDIOVASCULAR: S1 and S2 present. No murmurs, rubs, or gallops. PULMONARY: Chest is clear to auscultation, no wheezing or crackles. ABDOMEN: Soft, nontender, nondistended, normoactive bowel sounds. No palpable organomegaly. MUSCULOSKELETAL: No joint swelling or deformity. EXTREMITIES: No cyanosis, clubbing, or pedal edema. NEUROLOGICAL: Alert and oriented 3, left-sided facial droop noted on admission IMPROVED , motor strength is 0/5 left upper extremity CHRONIC , 2/ 5 left lower extremity CHRONIC from PREVIOUS CVA motor strength is 5 x 5 right upper and lower extremity SKIN: No rashes. Objective - Vital Signs Vital signs: Vital Signs Temp 97.7 F 10/31/23 23:13 Pulse 73 10/31/23 23:13 Resp 17 10/31/23 23:13 BP 104/67 10/31/23 23:13 Pulse Ox 99 10/31/23 23:13 FiO2 Intake & Output 10/31/23 10/31/23 11/01/23 06:59 18:59 06:59 Intake Total 328 Output Total 300 300 Balance -300 28 Intake: IV 10 Invasive Line 1 10 Oral 318 Output: Urine 300 300 Other: # Voids 2 # Bowel Movements 1 1 1 - Labs CBC & Chem 7: 11/01/23 09:25 11/01/23 09:25 Labs: Abnormal Lab Results - Last 24 Hours (Table) 10/30/23 Range/Units 13:08 HDL Cholesterol 39.30 L (40.00-60.00) mg/dL Assessment and Plan Assessment: Assessment and plan * Acute slurred speech with History of CVA with residual left upper and lower extremity weakness resolved>> stroke recrudesce * Witnessed seizure per EMS * Hypertension * History of dysphagia status post PEG tube in place * In regards to CVA, continue neuro checks, CT head, CT angina head and neck completed, MRI brain completed shows areas of remote encephalomalacia in the right parietal and right parieto-occipital region with hyperintensity seen and felt to reflect remote insult/MH with peripheral hemosiderin deposit>> continue Lipitor, defer antiplatelet initiation to Neurology * EEG completed no epileptiform activity noted however EEG abnormalities noted consistent with cerebral dysfunction * In regards to witnessed seizure continue patient on Keppra per neurology EEG completed * In regards to history of hypertension continue metoprolol * Follow-up lipid profile reviewed * Will need physical therapy occupational therapy evaluation>> in regards to disposition family would want patient to go back to subacute rehab if insurance approval obtained * CODE STATUS is no code Time with Patient: Greater than 30
[2023-11-01] MEDS ORDERED: NYSTATIN 100,000 UNIT/GM POWD 15 GM TOPICAL PRN (14:31)
[2023-11-01] MEDS: SERTRALINE 50 MG TAB PO SCH (21:35)
[2023-11-01] MEDS: ATORVASTATIN 40 MG TAB PO SCH (21:36)
[2023-11-02 06:48] LABS: HCT 35.6 % (34.0-46.0); HGB 12.1 gm/dL (11.4-16.0); MCH 30.5 pg (25.0-35.0); MCHC 33.8 g/dL (31.0-37.0); MCV 90.1 fL (80.0-100.0); Mean Platelet Volume 9.5; Platelet Count 258 k/uL (150-450); RBC 3.95 m/uL (3.80-5.40); WBC 6.1 k/uL (3.8-10.6)
[2023-11-02 07:12] LABS: African American GFR (CKD) >90 (>60 ml/min/1.73 sqM); Anion Gap 3 mmol/L; Blood Urea Nitrogen 6 mg/dL (7-17); Calcium 8.4 mg/dL (8.4-10.2); Carbon Dioxide 27 mmol/L (22-30); Chloride 106 mmol/L (98-107); Glucose 98 mg/dL (74-99); Magnesium 1.9 mg/dL (1.6-2.3); Non-African American GFR(CKD) >90 (>60 ml/min/1.73 sqM); Potassium 3.1 mmol/L (3.5-5.1); Sodium 136 mmol/L (137-145)
[2023-11-02] MEDS: FAMOTIDINE 20 MG TAB PO SCH (09:58)
[2023-11-02] MEDS: POTASSIUM CHLORIDE ER 20 MEQ TAB.ER PO SCH ×2 (09:58→12:33)
[2023-11-02] MEDS: METOPROLOL TARTRATE 25 MG TAB PO SCH ×2 (09:58→20:44)
[2023-11-02] MEDS: HEPARIN SODIUM,PORCINE 5,000 UNIT/ML 1 ML VIAL SQ SCH ×2 (09:58→20:44)
[2023-11-02] MEDS: levETIRAcetam 500 MG TAB PO SCH ×2 (09:58→20:44)
[2023-11-02] MEDS: SODIUM CHLORIDE 0.9% 1,000 ML IV SCH (13:21)
--- NOTE | 2023-11-02 15:02 | P.PN ---
Subjective Progress Note Date: 11/02/23 This is a pleasant 78-year-old female who comes to the hospital with confusion slurred speech and worsening left-sided deficits. Patient has a history of stroke back in August 2023 and she ended with a hemorrhagic conversion after receiving TN K. Patient was noted by EMS who brought her to the hospital to be having seizure-like activity. Neurology has started her on oral Keppra and there has been no further seizure-like episodes. Her EEG was negative for seizure or epileptiform activity. Her brain MRI was showing a remote insult/hemorrhage with peripheral hemosiderin deposit. Echocardiogram showing an EF of 55% with trace pericardial effusion. She is maintained on statin therapy however she is felt to not be a candidate for any antiplatelet or anticoagulants because of the prior bleed. She does have residual left hemiparesis and today patient feels like she is at her baseline. Altered mentation has improved. She continues with PEG tube and TPN she is also on a heart healthy diet. Review of Systems Constitutional: Denied any fatigue denied any fever. Cardio vascular: denied any chest pain, palpitations Gastrointestinal: denied any nausea, vomiting, diarrhea Pulmonary: Denied any shortness of breath cough Neurologic denied any new focal deficits left-sided hemiparesis All inpatient medications were reviewed and appropriate changes in these medications as dictated in the interval history and assessment and plan. PHYSICAL EXAMINATION: GENERAL: The patient is alert and oriented x3, not in any acute distress. Well developed, well nourished. HEENT: Pupils are round and equally reacting to light. EOMI. No scleral icterus. No conjunctival pallor. Normocephalic, atraumatic. No pharyngeal erythema. No thyromegaly. CARDIOVASCULAR: S1 and S2 present. No murmurs, rubs, or gallops. PULMONARY: Chest is clear to auscultation, no wheezing or crackles. ABDOMEN: Soft, nontender, nondistended, normoactive bowel sounds. No palpable organomegaly. MUSCULOSKELETAL: No joint swelling or deformity. EXTREMITIES: No cyanosis, clubbing, or pedal edema. NEUROLOGICAL: Gross neurological examination did not reveal any focal deficits. Left-sided hemiparesis SKIN: No rashes. Assessment and Plan -Acute slurred speech with History of CVA with residual left hemiparesis; the slurred speech has resolve and pt feels deficits are back to baseline. stroke reoccurance. Neurology following not a candidated for anticoagulation/antiplatelet by her neurologist due to prior hemorrhagic conversion of the stroke back in 08/2023. -Witnessed seizure per EMS, neurology following and patient has been started on oral keppra. -Hypertension maintained on metoprolol -History of dysphagia status post PEG tube in place patient also continues on heart healthy diet -Weakness PT/OT following and patient requires subacute rehab on discharge pending authorization for DC to [facility] -Gastroesophageal reflux disease -Hyperlipidemia maintained on statin therapy -Depression GI prophylaxis DVT prophylaxis deferred will use mechanical Do Not Resuscitate/Do Not Intubate The impression and plan of care has been dictated by Karmen Gates Nurse Practitioner as directed. Dr. Les MD I have performed a history and physical examination and medical decision making of this patient, discussed the same with the dictator, and agree with the dictators assessment and plan as written, documented as a scribe. Based on total visit time, I have performed more than 50% of this visit. Objective - Vital Signs Vital signs: Vital Signs Temp 98.2 F 11/02/23 09:03 Pulse 66 11/02/23 09:03 Resp 16 11/02/23 09:03 BP 106/70 11/02/23 09:03 Pulse Ox 94 L 11/02/23 09:03 FiO2 Intake & Output 11/01/23 11/02/23 11/02/23 18:59 06:59 18:59 Intake Total 118 Output Total 500 Balance -500 118 Intake: Oral 118 Output: Urine 500 Other: Voiding Method External Catheter # Voids 1 # Bowel Movements 1 - Labs CBC & Chem 7: 11/02/23 06:29 11/02/23 06:29 Labs: Abnormal Lab Results - Last 24 Hours (Table) 11/01/23 11/02/23 Range/Units 09:25 06:29 Sodium 136 L (137-145) mmol/L Potassium 3.3 L 3.1 L (3.5-5.1) mmol/L BUN 6 L (7-17) mg/dL Creatinine 0.28 L 0.27 L (0.52-1.04) mg/dL Calcium 8.3 L (8.4-10.2) mg/dL Assessment and Plan Time with Patient: Less than 30
[2023-11-02] MEDS: ATORVASTATIN 40 MG TAB PO SCH (20:44)
[2023-11-02] MEDS: SERTRALINE 50 MG TAB PO SCH (20:44)
[2023-11-03 06:59] VITALS: TEMP 96.5
[2023-11-03] MEDS: FAMOTIDINE 20 MG TAB PO SCH (08:52)
[2023-11-03] MEDS: METOPROLOL TARTRATE 25 MG TAB PO SCH (08:52)
[2023-11-03] MEDS: levETIRAcetam 500 MG TAB PO SCH (08:52)
[2023-11-03] MEDS: HEPARIN SODIUM,PORCINE 5,000 UNIT/ML 1 ML VIAL SQ SCH (08:52)
[2023-11-03 09:08] VITALS: BP 94/54; PULSE 79; RESP 16
--- NOTE | 2023-11-03 12:30 | P.DS ---
Providers Date of admission: 10/30/23 14:58 Attending physician: Dulce Aviles MD Consults: 10/30/23 14:55 Consult Physician Urgent Consulting Provider: Sanju Cain Consult Reason/Comments: TIA, new onset stroke Do you want consulting provider notified?: Yes Primary care physician: Omari Soto Hospital Course: Final diagnosis -Acute slurred speech with History of CVA with residual left hemiparesis, Neurology following not a candidated for anticoagulation/antiplatelet by her neurologist due to prior hemorrhagic conversion of the stroke back in 08/2023. -Witnessed seizure per EMS, neurology following and patient has been started on oral keppra. -Hypertension maintained on metoprolol -History of dysphagia status post PEG tube continues on heart healthy diet no longer on EN. -Weakness PT/OT following and patient requires subacute rehab on discharge pending authorization for DC to [facility] -Gastroesophageal reflux disease -Hyperlipidemia maintained on statin therapy -Depression Do Not resuscitate DO NOT INTUBATE Discharge disposition Patient is stable for discharge to subacute rehab. Although patient was an ischemic stroke she is not back to baseline and due to a prior hemorrhagic conv ersion she is not a candidate for any anticoagulant or antiplatelet therapy and this was also recommended by her primary neurologist Dr. Palmer out of [place]. Patient should follow-up within 1 to 2 weeks. She has also been started on oral Keppra twice a day for seizure prevention. Patient should not drive operate heavy machinery or swim alone or climb ladders for the next 6 months or until seizure free per the DMV. Repeat labs in 2 to 3 days. Hospital Course 78-year-old patient with past medical history significant for CVA, dysphagia status post PEG tube in place,, chronic left upper and lower extremity weakness from previous stroke, hypertension, presents to the emergency department with complains of slurred speech. Patient had symptom onset earlier this morning. Per daughter patient was at [facility] at the [place] [facility] post CVA. Ultimately she was discharged home after insurance ran out. Per daughter patient has been significantly improved and was seen by speech therapy outpatient was started on dysphagia diet. Patient not getting any nutrition through PEG tube anymore. Patient has a history of stroke back in August 2023 and she ended with a hemorrhagic conversion after receiving TN K. Patient was noted by EMS who brought her to the hospital to be having seizure-like activity this was en route to the ER patient had episode of seizure and unresponsiveness and was given Versed by EMS Neurology has started her on oral Keppra and there has been no further seizure-like episodes. Her EEG was negative for seizure or epileptiform activity. Patient had a CT head, CT angina head and neck done which was negative for large vessel occlusion. Her brain MRI was showing a remote insult/hemorrhage with peripheral hemosiderin deposit. Echocardiogram showing an EF of 55% with trace pericardial effusion. She is maintained on statin therapy however she is felt to not be a candidate for any antiplatelet or anticoagulants because of the prior bleed. She does have residual left hemiparesis and today patient feels like she is at her baseline. Altered mentation has improved. Potassium is now 4.3. Lipid panel showing triglycerides 117, cholesterol 106, LDL 43.3 and HDL of 39.30. She is not having any shortness of breath no chest pain no nausea vomiting diarrhea. Her neurodeficits are stable and consistent with a left hemiparesis from prior stroke. She is tolerating diet her lungs are clear S1-S2 auscultated. Please see medication reconciliation for list of current medication. Thank you for allowing us to participate in the care of this patient. The impression and plan of care has been dictated by Karmen Gates, Nurse Practitioner as directed. Dr. Les MD I have performed a history and physical examination and medical decision making of this patient, discussed the same with the dictator, and agree with the dictators assessment and plan as written, documented as a scribe. Based on total visit time, I have performed more than 50% of this visit. Patient Condition at Discharge: Fair Plan - Discharge Summary New Discharge Prescriptions: New Nystatin 100,000 Unit/gm Powd [Mycostatin Powder] 1 applic TOPICAL TID PRN each PRN Reason: Skin Irritation levETIRAcetam [Keppra] 500 mg PO Q12HR tab Acetaminophen Tab [Tylenol] 650 mg PO Q6HR PRN tab PRN Reason: Fever And/ Or Pain Continue Metoprolol Tartrate [Lopressor] 25 mg PO BID Famotidine [Pepcid] 20 mg PO DAILY Atorvastatin [Lipitor] 40 mg PO HS Sertraline [Zoloft] 50 mg PO HS Discharge Medication List Atorvastatin [Lipitor] 40 mg PO HS 09/26/23 [History] Famotidine [Pepcid] 20 mg PO DAILY 09/26/23 [History] Metoprolol Tartrate [Lopressor] 25 mg PO BID 09/26/23 [History] Sertraline [Zoloft] 50 mg PO HS 10/30/23 [History] Acetaminophen Tab [Tylenol] 650 mg PO Q6HR PRN tab 11/03/23 [Rx] Nystatin 100,000 Unit/gm Powd [Mycostatin Powder] 1 applic TOPICAL TID PRN each 11/03/23 [Rx] levETIRAcetam [Keppra] 500 mg PO Q12HR tab 11/03/23 [Rx] Follow up Appointment(s)/Referral(s): Omari Soto MD [Primary Care Provider] - 1-2 days Karen Palmer DO [REFERRING] - 1 Week Ambulatory/Diagnostic Orders: Basic Metabolic Panel [LAB.AMB] Time Frame: 3 Days, Location: None Selected Complete Blood Count w/diff [LAB.AMB] Location: None Selected Patient Instructions/Handouts: Seizure/Epilepsy Discharge Instructions & Follow-Up Activity/Diet/Wound Care/Special Instructions: Avoid use of antiplatelets since had history of brain bleed and was instructed by her outpatient neurologist (Dr. Palmer) to avoid them Discharge Disposition: TRANSFER TO SNF/ECF
--- NOTE | 2023-11-03 13:10 | P.PN ---
Subjective Progress Note Date: 11/02/23 Patient initially seen by Dr. Sanju Cain, then subsequently followed up with Dr. Knapp. Please refer to their notes for detail. Patient is a 78-year-old female who presented with left facial droop and dysarthria, then had a seizure while EMS was present, for which she received Versed. Patient has history of old right-sided stroke, that [facility], with bleed post TNK in August 2023. Patient has residual left-sided weakness. Patient was placed on Keppra. EEG showed slowing over the right hemisphere but no seizure or discharges. MRI revealed no acute infarct. Patient tells me that she was in the car, when her left foot was just wobbling. She could not step on it. It was just used, with no jerking or seizuring. It seems that the patient had a stroke in August 2023 and she was at [facility] and was given TNK then had bleeding after that and was given reversal. She was then taken to [facility]. Serum glucose 114, sodium is 135, calcium is 8.6. Some of the work-up during this hospital visit consisted of: CBC with differential is unremarkable CT of the head is reported as no acute intracranial hemorrhage or midline shift. If clinical concern for acute stroke versus further investigation with MRI study may be warranted. In the body report it mentions old infarct over the right parietal occipital superiorly. I personally reviewed the CT and agree old stroke over the left parietal>occipital region. There is no acute or subacute ischemia and no bleed. CTA head and neck is reported as no significant stenosis in the common or paid internship al carotid artery bilaterally. No large vessel occlusion or aneurysm at the level [place]. EKG is reported as sinus rhythm with occasional supraventricular premature complexes. Borderline EKG. Seems a code stroke was activated by the ED team and that her symptoms resolved. No IV thrombolytic since symptoms resolved and risk outweigh benefits. Objective - Vital Signs Vital signs: Vital Signs Temp 98.0 F 11/02/23 16:00 Pulse 65 11/02/23 16:00 Resp 18 11/02/23 16:00 BP 115/67 11/02/23 16:00 Pulse Ox 98 11/02/23 16:00 FiO2 Intake & Output 11/01/23 11/02/23 11/02/23 18:59 06:59 18:59 Intake Total 898 Output Total 500 650 Balance -500 248 Intake: Oral 898 Output: Urine 500 650 Other: Voiding Method External Catheter External Catheter # Voids 1 # Bowel Movements 1 1 - Exam General: The pt is reclining in the bed. She is well nourished and in no distress. She denies any pain. HEENT: Head is atraumatic, normocephalic. There is no scleral icterus. Fundus no visualized. Mucous membranes moist Neurological Exam Mental status: The pt is awake, alert and oriented x3. Patient knows it is October and the year is 24 and she believes it is [facility] and knows it is a [facility]. Speech is clear. There is no dysarthria or aphasia. Cranial nerves: Pupils are equal at 3 mm and reactive. Visual raymundo revealed left-sided visual field neglect particularly on double simultaneous stimulation. No definitive left visual field cut. EOMI. Facial sensation intact. Patient has left facial asymmetry noticeable. Hearing grossly intact. Shoulder shrug diminished on the left. Tongue protrudes midline. Motor: (Right/left) deltoid 4/3-. Patient has right rotator cuff surgery. Biceps 5/3-+, triceps 5/3+, sales and marketing director 5/4+5-. Hip flexion 4/3, ankle dorsiflexion 5/3. Sensory to touch is equal, sometimes neglects left side on double simultaneous stimulation. - Labs CBC & Chem 7: 11/02/23 06:29 11/03/23 10:12 Labs: Abnormal Lab Results - Last 24 Hours (Table) 11/02/23 Range/Units 06:29 Sodium 136 L (137-145) mmol/L Potassium 3.1 L (3.5-5.1) mmol/L BUN 6 L (7-17) mg/dL Creatinine 0.27 L (0.52-1.04) mg/dL Assessment and Plan Assessment: A 78-year-old woman with history of stroke in August 2023 receive TNK then had hemorrhagic conversion then received reversal with residual left hemiparesis who presents because of dysarthria and left facial droop and later followed by seizures. New onset seizure Episode of dysarthria and left facial droop later followed by seizures: Either due to new onset seizures from cortical irritation from old stroke vs new onset stroke leading to seizure. Current CT shows right parietal > occipital encephalomalacia History of stroke in 08/2023 and received TNK that had hemorrhagic conversion then received reversal with residual left hemiparesis. Hypertension Plan: Dr. Cain started patient on Keppra 500mg bid even though this is new onset seizure especially since has encephalomalacia that increases risk for seizures. Patient did receive loading dose of Keppra 1gm once. Resume Lipitor 40mg qhs. I will avoid use of antiplatelets since had history of brain bleed and was instructed by her outpatient neurologist (Dr. Palmer) to avoid them. But will pursue MRI Brain and if does have acute/subacute stroke will consider starting her on low dose ASA 81mg daily if felt benefit outweigh risk. MRI Brain revealed areas of remote encephalomalacia involving the right parietal and right parietal occipital region with peripheral hypointensity seen felt to reflect remote insult/hemorrhage with peripheral hemosiderin deposition. On the diffusion-weighted data set, there are dependent areas of scattered hyperintensity. I personally reviewed MRI, agree with the findings. Cannot rule out a new CVA. We will review MRI with the radiologist. 2D echo revealed technically limited views. Poor quality images. LVEF 55%. No significant wall motion abnormality. Mild AI. Left atrial size is normal. CTA of the head and neck revealed no significant stenosis in common or internal carotid arteries bilaterally. No large vessel occlusion or aneurysm at the level of [place]. Lipid panel with cholesterol 106, LDL 43, HDL 39, triglycerides 117. Continue Lipitor 40 mg daily. Seizure precaution and pad Neuro checks Cardiac monitoring PT, OT and FURNITURE DETAILER are consulted. Will defer the rest of medical management to the primary team. Addendum: I reviewed MRI of the brain in detail. There is significantly abnormal signal in the right posterior parietal/occipital region on multiple sequences including DWI, ADC, SWI as well as on FLAIR (bright signal) signal. There is definitely still persistent some blood product (not visible on CT head). Patient's neurologist has recommended for patient not to take antiplatelets or anticoagulants. I will try to review MRI with the radiologist in the morning. We will have patient follow-up with her neurologist regarding clearance for aspirin. Neurologically clear otherwise.
--- NOTE | 2023-11-03 15:54 | P.PN ---
Subjective Progress Note Date: 11/03/23 11/03/2023: Patient was seen for a follow-up. Patient is laying comfortably in the bed. Offers no new complaints. Feels the left side is slightly weaker than the right as compared to how she was prior to this admission. 11/02/2023: Patient initially seen by Dr. Sanju Cain, then subsequently followed up with Dr. Knapp. Please refer to their notes for detail. Patient is a 78 -year-old female who presented with left facial droop and dysarthria, then had a seizure while EMS was present, for which she received Versed. 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 Patient has residual left-sided weakness. Patient was placed on Keppra. EEG showed slowing over the right hemisphere but no seizure or discharges. MRI revealed no acute infarct. Patient tells me that she was in the car, when her left foot was just wobbling. She could not step on it. It was just used, with no jerking or seizuring. It seems that the patient had a stroke in August 2023 and she was at [facility] and was given TNK then had bleeding after that and was given reversal. She was then taken to [facility]. Serum glucose 114, sodium is 135, calcium is 8.6. Some of the work-up during this hospital visit consisted of: CBC with differential is unremarkable CT of the head is reported as no acute intracranial hemorrhage or midline shift. If clinical concern for acute stroke versus further investigation with MRI study may be warranted. In the body report it mentions old infarct over the right parietal occipital superiorly. I personally reviewed the CT and agree old stroke over the left parietal>occipital region. There is no acute or subacute ischemia and no bleed. CTA head and neck is reported as no significant stenosis in the common or internal carotid artery bilaterally. No large vessel occlusion or aneurysm at the level ruby of [place]. EKG is reported as sinus rhythm with occasional supraventricular premature complexes. Borderline EKG. Seems a code stroke was activated by the ED team and that her symptoms resolved. No IV thrombolytic since symptoms resolved and risk outweigh benefits. Objective - Vital Signs Vital signs: Vital Signs Temp 96.5 F L 11/03/23 04:00 Pulse 79 11/03/23 08:00 Resp 16 11/03/23 08:00 BP 94/54 11/03/23 08:00 Pulse Ox 94 L 11/03/23 08:00 FiO2 Intake & Output 11/02/23 11/03/23 11/03/23 18:59 06:59 18:59 Intake Total 1374 480 Output Total 650 Balance 724 480 Intake: Oral 1374 480 Output: Urine 650 Other: Voiding Method External Catheter External Catheter External Catheter # Voids 1 # Bowel Movements 1 1 1 - Exam General: The pt is reclining in the bed. She is well nourished and in no distress. She denies any pain. HEENT: Head is atraumatic, normocephalic. There is no scleral icterus. Fundus no visualized. Mucous membranes moist Neurological Exam Mental status: The pt is awake, alert and oriented x3. Patient knows it is October and the year is 24 and she believes it is [facility] and knows it is a [facility]. Speech is clear. There is no dysarthria or aphasia. Cranial nerves: Pupils are equal at 3 mm and reactive. Visual raymundo revealed left-sided visual field neglect particularly on double simultaneous stimulation. No definitive left visual field cut. EOMI. Facial sensation intact. Patient has left facial asymmetry noticeable. Hearing grossly intact. Shoulder shrug diminished on the left. Tongue protrudes midline. Motor: (Right/left) deltoid 4/3-. Patient has right rotator cuff surgery. 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 Hip flexion 4/3, ankle dorsiflexion 5/3. Sensory to touch is equal, sometimes neglects left side on double simultaneous stimulation. - Labs CBC & Chem 7: 11/02/23 06:29 11/03/23 10:12 Assessment and Plan Assessment: A 78-year-old woman with history of stroke in August 2023 receive TNK then had hemorrhagic conversion then received reversal with residual left hemiparesis who presents because of dysarthria and left facial droop and later followed by seizures. New onset seizure Episode of dysarthria and left facial droop later followed by seizures: Either due to new onset seizures from cortical irritation from old stroke vs new onset stroke leading to seizure. Current CT shows right parietal > occipital encephalomalacia History of stroke in 08/2023 and received TNK that had hemorrhagic conversion then received reversal with residual left hemiparesis. Hypertension Plan: Dr. Cain started patient on Keppra 500mg bid even though this is new onset seizure especially since has encephalomalacia that increases risk for seizures. Patient did receive loading dose of Keppra 1gm once. Resume Lipitor 40mg qhs. I will avoid use of antiplatelets since had history of brain bleed and was instructed by her outpatient neurologist (Dr. Palmer) to avoid them. But will pursue MRI Brain and if does have acute/subacute stroke will consider starting her on low dose ASA 81mg daily if felt benefit outweigh risk. MRI Brain revealed areas of remote encephalomalacia involving the right parietal and right parietal occipital region with peripheral hypointensity seen felt to reflect remote insult/hemorrhage with peripheral hemosiderin deposition. On the diffusion-weighted data set, there are dependent areas of scattered hyperintensity. I reviewed MRI of the brain in detail. There is significantly abnormal signal in the right posterior parietal/occipital region on multiple sequences including DWI, ADC, SWI as well as on FLAIR (bright signal) signal. There is definitely still persistent some blood product (not visible on CT head). Reviewed MRI of the brain with Dr. Palmer, and also with Dr. Alvarado. There is significant abnormal signal on DWI, ADC, FLAIR and SWI. There is some hyperintense signal on T1-weighted image as well, suggestive of some residual blood. Overall it was in consensus that no definitive evidence of an acute st roke. MRI showing subacute blood products. Patient believes she is not back to baseline. We will have patient follow-up with her neurologist, and if he feels that patient has deficits, then may be a candidate for aspirin 81 mg. Discussed with primary physician as well. 2D echo revealed technically limited views. Poor quality images. LVEF 55%. No significant wall motion abnormality. Mild AI. Left atrial size is normal. CTA of the head and neck revealed no significant stenosis in common or internal carotid arteries bilaterally. No large vessel occlusion or aneurysm at the level of ruby of [place]. Lipid panel with cholesterol 106, LDL 43, HDL 39, triglycerides 117. Continue Lipitor 40 mg daily. Seizure precaution and pad Neuro checks Telemetry monitoring showing sinus rhythm, with sinus arrhythmia, some PVCs and PACs. No A-fib. PT, OT and ENGINEERING INSPECTOR are consulted. Will defer the rest of medical management to the primary team. We will have patient follow-up with her neurologist regarding clearance for aspirin. Neurologically clear otherwise. Addendum: I spoke to patient's daughter on the phone. Informed her about the results of MRI. Informed her that the MRI of the brain was abnormal as mentioned above, and although it appears that the abnormal DWI/ADC signal is likely from residual blood products (as per consensus from the 3 radiologist as mentioned above), however a new stroke is also in the differential in the surrounding stroke area. If patient had a new stroke, she would have more deficits on the left side. Discussed with patient's daughter. She informed me that patient is back to baseline. In fact she saw her mother moving her left arm better than baseline, was bringing up to her mouth, which she has not seen her previously. She believes her mother's thought processes, speech is all completely back to baseline. Therefore I do not believe patient had a new stroke. Probably it was just a seizure. Recommended patient's daughter to obtain the CD of the MRI from the medical records, and have it reviewed by patient's primary neurologist as well. At that point they can decide, if patient needs to be on a low-dose aspirin or not. At this point we will keep on holding off on any antiplatelet medication because of the reasons mentioned above. Time with Patient: Greater than 30
== END 2023-11-03 15:57 | DRG 101 ==
LOC: EC 12:58 → 3SCARD 14:58
PROVIDERS: ADMIT Internal Medicine; ATTEND Internal Medicine
DX: G40.909 Epilepsy, unspecified, not intractable, without status epilepticus (principal); I69.354 Hemiplegia and hemiparesis following cerebral infarction affecting left non-dominant side; Z43.1 Encounter for attention to gastrostomy; G93.89 Other specified disorders of brain; F32.A Depression, unspecified; I10 Essential (primary) hypertension; I69.391 Dysphagia following cerebral infarction; Z66 Do not resuscitate; R13.10 Dysphagia, unspecified; R47.1 Dysarthria and anarthria; E78.5 Hyperlipidemia, unspecified; I49.1 Atrial premature depolarization; M19.90 Unspecified osteoarthritis, unspecified site; K21.9 Gastro-esophageal reflux disease without esophagitis; Z79.899 Other long term (current) drug therapy
CPT/HCPCS: 36415; 70450; 70496; 70498; 70553; 71045; 80048; 80053; 80061; 82550; 83036; 83735; 84132; 84484; 85025; 85027; 85610; 85730; 93306; 94760; 95816; 96374; 99285

== ENCOUNTER 2023-11-26 19:33 | Inpatient (IN) | payer MEDICARE ==
[2023-11-26 22:02] LABS: Basophils # (A) 0.1 k/uL (0-0.2); Basophils % (A) 1 %; Eosinophils # (A) 0.1 k/uL (0-0.7); Eosinophils % (A) 1 %; HCT 40.9 % (34.0-46.0); HGB 13.3 gm/dL (11.4-16.0); Lymphocytes # (A) 1.5 k/uL (1.0-4.8); Lymphocytes % (A) 16 %; MCH 28.7 pg (25.0-35.0); MCHC 32.4 g/dL (31.0-37.0); MCV 88.5 fL (80.0-100.0); Mean Platelet Volume 9.2; Monocytes # (A) 0.4 k/uL (0-1.0); Monocytes % (A) 4 %; Neutrophils # (A) 7.3 k/uL (1.3-7.7); Neutrophils % (A) 77 %; Platelet Count 249 k/uL (150-450); RBC 4.63 m/uL (3.80-5.40); RDW 14.8 % (11.5-15.5); WBC 9.5 k/uL (3.8-10.6)
--- NOTE | 2023-11-26 22:02 | XR ---
EXAMINATION TYPE: XR chest 2V DATE OF EXAM: 11/26/2023 COMPARISON: 10/30/2023 HISTORY: 78-year-old female with confusion, altered mental status TECHNIQUE: AP and lateral views FINDINGS: Heart and lungs are normal in size. Hazy densities relating to portable technique and body habitus. D tyree throughout the thoracic spine. No jazmine consolidation or pleural effusion. IMPRESSION: No definite acute process.
[2023-11-26 22:10] LABS: ALT 12 U/L (4-34); AST 23 U/L (14-36); African American GFR (CKD) >90 (>60 ml/min/1.73 sqM); Albumin 3.2 g/dL (3.5-5.0); Alkaline Phosphatase 90 U/L (38-126); Anion Gap 6 mmol/L; Blood Urea Nitrogen 13 mg/dL (7-17); Calcium 8.8 mg/dL (8.4-10.2); Carbon Dioxide 29 mmol/L (22-30); Chloride 103 mmol/L (98-107); Glucose 94 mg/dL (74-99); Non-African American GFR(CKD) >90 (>60 ml/min/1.73 sqM); Potassium 2.9 mmol/L (3.5-5.1); Sodium 138 mmol/L (137-145); Total Bilirubin 0.9 mg/dL (0.2-1.3); Total Protein 5.9 g/dL (6.3-8.2)
[2023-11-26] MEDS: SODIUM CHLORIDE 0.9% 500 ML 500 ML IV ONE (22:13)
[2023-11-26 22:25] LABS: Partial Thromboplastin Time 24.3 sec (22.0-30.0); Prothrombin Time 11.2 sec (10.0-12.5)
[2023-11-26] MEDS ORDERED: Potassium Replacement Protocol 1 EACH MISC MISCELLANE PRN (22:31)
[2023-11-26] MEDS: POTASSIUM CHLORIDE 10 MEQ in WATER FOR INJECTION 1 100ML.BAG IVPB SCH (23:10)
[2023-11-27] MEDS ORDERED: NALOXONE 0.4 MG/ML 1 ML VIAL IV PRN (00:13)
--- NOTE | 2023-11-27 00:16 | ED ---
General Adult HPI - General Chief complaint: Neuro Symptoms/Deficit Stated complaint: Altered mental state, UTI Time Seen by Provider: 11/26/23 20:59 Source: EMS Mode of arrival: EMS Limitations: altered mental status - History of Present Illness Initial comments: 78-year-old female with History of CVA, A-fib, hyperlipidemia, hypertension sent from [facility] for UTI. I am told by nursing staff who obtained information from EMS, that the facility has difficulty with giving the patient oral medication. The physician recommended she be sent to the ER for IV antibiotics. I am told she has had increased confusion, hallucinations, and combativeness. At this time she is calm and cooperative, still hallucinating. Her daughter at bedside is able to calm her. She denies any chest pain, difficulty breathing, abdominal pain, nausea. - Related Data Home Medications Medication Instructions Recorded Confirmed Atorvastatin [Lipitor] 40 mg PO HS 09/26/23 11/26/23 Famotidine [Pepcid] 20 mg PO DAILY@0600 09/26/23 11/26/23 Metoprolol Tartrate [Lopressor] 25 mg PO BID@0800,1700 09/26/23 11/26/23 Sertraline [Zoloft] 75 mg PO HS 10/30/23 11/26/23 Cefuroxime [Ceftin] 250 mg PO BID@0800,1700 11/26/23 11/26/23 Ensure Enlive 120 - 237 ml PO BID@0800,1700 11/26/23 11/26/23 Magnesium Hydroxide [Milk of 7,200 mg PO DIRECTED PRN 11/26/23 11/26/23 Magnesia Concentrate] Na Phos,M-B/Na Phos,Di-Ba [Fleet 133 ml RECTAL DAILY PRN 11/26/23 11/26/23 Adult] Nystatin 100,000 Unit/gm Powd 1 applic TOPICAL TID PRN 11/26/23 11/26/23 [Mycostatin Powder] QUEtiapine FUMARATE [SEROquel] 25 mg PO HS 11/26/23 11/26/23 bisacodyL [Dulcolax] 10 mg RECTAL DAILY PRN 11/26/23 11/26/23 levETIRAcetam [Keppra] 500 mg PO Q12HR@0800,2100 11/26/23 11/26/23 Previous Rx's Medication Instructions Recorded Acetaminophen Tab [Tylenol] 650 mg PO Q6HR PRN tab 11/03/23 Allergies Allergy/AdvReac Type Severity Reaction Status Date / Time No Known Allergies Allergy Verified 11/26/23 19:48 Review of Systems ROS Statement: Those systems with pertinent positive or pertinent negative responses have been documented in the HPI. ROS Other: All systems not noted in ROS Statement are negative. Past Medical History Past Medical History: CVA/TIA, GERD/Reflux, Hyperlipidemia, Hypertension, Osteoarthritis (OA) Additional Past Medical History / Comment(s): left arm and leg weakness, some slurred speech History of Any Multi-Drug Resistant Organisms: None Reported Past Surgical History: Orthopedic Surgery Additional Past Surgical History / Comment(s): right arm rotator cuff surgery, PEG tube Past Anesthesia/Blood Transfusion Reactions: No Reported Reaction Past Psychological History: Depression Smoking Status: Never smoker Past Alcohol Use History: None Reported Past Drug Use History: None Reported General Exam Limitations: altered mental status General appearance: alert, in no apparent distress Head exam: Present: atraumatic, normocephalic Eye exam: Present: normal appearance, EOMI Neck exam: Present: normal inspection Respiratory exam: Present: normal lung sounds bilaterally. Absent: respiratory distress, wheezes, rales, rhonchi, stridor Cardiovascular Exam: Present: regular rate, normal rhythm, normal heart sounds. Absent: systolic murmur, diastolic murmur, rubs, gallop, clicks Extremities exam: Present: normal inspection Neurological exam: Present: alert, altered Expanded Patient oriented to: Present: person. Absent: place, time Speech: Present: fluid speech Motor strength exam: RUE: 5, LUE: 0, RLE: 5, LLE: 2/1 Eye Response: (4) open spontaneously Motor Response: (6) obeys commands Verbal Response: (4) confused conversation [place] Total: 14 Skin exam: Present: warm, dry Course Vital Signs 11/26/23 11/26/23 11/26/23 19:48 20:40 21:00 Temperature 98.2 F Pulse Rate 89 85 90 Respiratory 16 18 16 Rate Blood Pressure 82/72 117/94 114/99 O2 Sat by Pulse 96 95 95 Oximetry 11/26/23 11/26/23 11/26/23 22:00 23:00 23:10 Temperature Pulse Rate 91 90 85 Respiratory 20 18 17 Rate Blood Pressure 120/94 121/83 121/83 O2 Sat by Pulse 95 96 Oximetry EKG Findings - EKG Comments: EKG Findings:: Atrial fibrillation with aberrant conduction or ventricular premature complexes. Ventricular rate 92. MT interval indeterminable. QRS 79. QT 383. QTc 433. Medical Decision Making - Medical Decision Making Was pt. sent in by a medical professional or institution (, PA, STRAP SETTER, urgent care, hospital, or [place] [facility]...) When possible be specific @ -[facility] Did you speak to anyone other than the patient for history (EMS, parent, family, police, friend...)? What history was obtained from this source @ -History obtained from daughter at bedside, as well as information provided by EMS through nursing staff Did you review nursing and triage notes (agree or disagree)? Why? @ -[I reviewed and agree with nursing and triage notes] Were old charts reviewed (outside hosp., previous admission, EMS record, old EKG, old radiological studies, urgent care reports/EKG's, [place] [facility] records)? Report findings @ -Previous visit is reviewed Differential Diagnosis (chest pain, altered mental status, abdominal pain women, abdominal pain men, vaginal bleeding, weakness, fever, dyspnea, syncope, headache, dizziness, GI bleed, back pain, seizure, CVA, palpatations, mental health, musculoskeletal)? @ -MDM Differential Altered Mental Status: Hypoglycemia, DKA, hypercapnia, ETOH, overdose, CO poisoning, trauma, myxedema coma, HTN encephalopathy, infection, encephalitis, psychosis, intercranial hemorrhage, hepatic encephalopathy, meningitis, CVA this is not meant to be an all-inclusive list EKG interpreted by me (3pts min.). @ -[As above] X-rays interpreted by me (1pt min.). @ -Chest x-ray shows no definite acute process CT interpreted by me (1pt min.). @ -[None done] U/S interpreted by me (1pt. min.). @ -[None done] What testing was considered but not performed or refused? (CT, X-rays, U/S, labs)? Why? @ -[None] What meds were considered but not given or refused? Why? @ -[None] Did you discuss the management of the patient with other professionals (professionals i.e. , PA, STRAP SETTER, lab, RT, psych nurse, social worker assistant, caravan park and camping ground manager, teacher, fire prevention officer, hospice case manager)? Give summary @ -I spoke with the [facility] provider on-call Shaina who accepted admission Was smoking cessation discussed for >3mins.? @ -[No] Was critical care preformed (if so, how long)? @ -[No] Were there social determinants of health that impacted care today? How? (Homelessness, low income, unemployed, alcoholism, drug addiction, transportation, low edu. Level, literacy, decrease access to med. care, penitentiary, rehab)? @ -[No] Was there de-escalation of care discussed even if they declined (Discuss DNR or withdrawal of care, Hospice)? DNR status @I spoke with the patient and her daughter at bedside regarding CODE STATUS. Patient [place] paperwork from [place] [facility] indicating that she is a no code What co-morbidities impacted this encounter? (DM, HTN, Smoking, COPD, CAD, Cancer, CVA, ARF, Chemo, Hep., AIDS, mental health diagnosis, sleep apnea, morbid obesity)? @ -A-fib, CVA, hypertension Was patient admitted / discharged? Hospital course, mention meds given and route, prescriptions, significant lab abnormalities, going to OR and other pertinent info. @ -Admitted. 78-year-old female brought in from [facility] for altered mental status. She was found to have UTI based on lab studies from yesterday. She was having increased confusion and combativeness at the [place] [facility]. On physical exam it is noted that patient has a residual left-sided deficit from previous CVA. Lab work shows no leukocytosis or anemia. Potassium is 2.9, patient is receiving IV replacement. Chest x-ray shows no acute process. Troponin is 0.045. Patient is having no chest pain. EKG shows atrial fibrillation. Daughter confirms that the patient has history of A-fib. She is currently on metoprolol but is not on any anticoagulation, she has history of intracranial hemorrhage after receiving tenecteplase in August 2023 and was instructed to abstain from anticoagulants and antiplatelets. Patient will require admission. I spoke with Shaina YANES from [facility] and she accepted admission. I informed her of the patient's elevated troponin and history inquiring if she would rather heparin be started or to trend troponins and the patient's symptoms. She agrees with abstaining from heparin at this time and trending the patient's troponins and symptoms while maintaining the patient on the athletic monitor. Blood cultures are drawn and patient is given 1 g of Rocephin. I discussed this case with my attending Dr. Ayala Undiagnosed new problem with uncertain prognosis? @ -[No] Drug Therapy requiring intensive monitoring for toxicity (Heparin, Nitro, Insulin, Cardizem)? @ -[No] Were any procedures done? @ -[No] Diagnosis/symptom? @ -UTI, hypokalemia, elevated troponin Acute, or Chronic, or Acute on Chronic? @ -Acute Uncomplicated (without systemic symptoms) or Complicated (systemic symptoms)? @ -Complicated Side effects of treatment? @ -[No] Exacerbation, Progression, or Severe Exacerbation? @ -[No] Poses a threat to life or bodily function? How? (Chest pain, [place], [place], pneumonia, PE, COPD, DKA, ARF, appy, cholecystitis, CVA, Diverticulitis, Homicidal, Suicidal, threat to staff... and all critical care pts) @ -Yes - Lab Data Result diagrams: 11/26/23 21:45 11/26/23 21:45 Lab Results 11/26/23 11/26/23 11/26/23 Range/Units 21:45 21:45 21:45 WBC 9.5 (3.8-10.6) k/uL RBC 4.63 (3.80-5.40) m/uL Hgb 13.3 (11.4-16.0) gm/dL Hct 40.9 (34.0-46.0) % MCV 88.5 (80.0-100.0) fL MCH 28.7 (25.0-35.0) pg MCHC 32.4 (31.0-37.0) g/dL RDW 14.8 (11.5-15.5) % Plt Count 249 (150-450) k/uL MPV 9.2 Neutrophils % 77 % Lymphocytes % 16 % Monocytes % 4 % Eosinophils % 1 % Basophils % 1 % Neutrophils # 7.3 (1.3-7.7) k/uL Lymphocytes # 1.5 (1.0-4.8) k/uL Monocytes # 0.4 (0-1.0) k/uL Eosinophils # 0.1 (0-0.7) k/uL Basophils # 0.1 (0-0.2) k/uL PT 11.2 (10.0-12.5) sec INR 1.0 (<1.2) APTT 24.3 (22.0-30.0) sec Sodium 138 (137-145) mmol/L Potassium 2.9 L (3.5-5.1) mmol/L Chloride 103 (98-107) mmol/L Carbon Dioxide 29 (22-30) mmol/L Anion Gap 6 mmol/L BUN 13 (7-17) mg/dL Creatinine 0.37 L (0.52-1.04) mg/dL Est GFR (CKD-EPI)AfAm >90 (>60 ml/min/1.73 sqM) Est GFR (CKD-EPI)NonAf >90 (>60 ml/min/1.73 sqM) Glucose 94 (74-99) mg/dL Calcium 8.8 (8.4-10.2) mg/dL Total Bilirubin 0.9 (0.2-1.3) mg/dL AST 23 (14-36) U/L ALT 12 (4-34) U/L Alkaline Phosphatase 90 (38-126) U/L Troponin I (0.000-0.034) ng/mL Total Protein 5.9 L (6.3-8.2) g/dL Albumin 3.2 L (3.5-5.0) g/dL 11/26/23 Range/Units 21:45 WBC (3.8-10.6) k/uL RBC (3.80-5.40) m/uL Hgb (11.4-16.0) gm/dL Hct (34.0-46.0) % MCV (80.0-100.0) fL MCH (25.0-35.0) pg MCHC (31.0-37.0) g/dL RDW (11.5-15.5) % Plt Count (150-450) k/uL MPV Neutrophils % % Lymphocytes % % Monocytes % % Eosinophils % % Basophils % % Neutrophils # (1.3-7.7) k/uL Lymphocytes # (1.0-4.8) k/uL Monocytes # (0-1.0) k/uL Eosinophils # (0-0.7) k/uL Basophils # (0-0.2) k/uL PT (10.0-12.5) sec INR (<1.2) APTT (22.0-30.0) sec Sodium (137-145) mmol/L Potassium (3.5-5.1) mmol/L Chloride (98-107) mmol/L Carbon Dioxide (22-30) mmol/L Anion Gap mmol/L BUN (7-17) mg/dL Creatinine (0.52-1.04) mg/dL Est GFR (CKD-EPI)AfAm (>60 ml/min/1.73 sqM) Est GFR (CKD-EPI)NonAf (>60 ml/min/1.73 sqM) Glucose (74-99) mg/dL Calcium (8.4-10.2) mg/dL Total Bilirubin (0.2-1.3) mg/dL AST (14-36) U/L ALT (4-34) U/L Alkaline Phosphatase (38-126) U/L Troponin I 0.045 H* (0.000-0.034) ng/mL Total Protein (6.3-8.2) g/dL Albumin (3.5-5.0) g/dL Disposition Clinical Impression: UTI (urinary tract infection), Hypokalemia, Elevated troponin Disposition: ADMITTED IP TO THIS HOSP Condition: Fair Time of Disposition: 00:16
[2023-11-27] MEDS: SODIUM CHLORIDE 0.9% 500 ML 500 ML IV ONE (01:30)
[2023-11-27] MEDS: cefTRIAXone IN SWFI 1,000 MG/10 ML SYRINGE IVP STA (01:58)
[2023-11-27 02:50] LABS: Appearance,Urine Turbid (Clear); Bacteria,Urine Occasional /hpf; Bilirubin,Urine Negative (Negative); Blood,Urine Moderate (Negative); Color,Urine Yellow; Glucose,Urine (UA) Negative (Negative); Hyaline Casts,Urine 48 /lpf (0-2); Ketones,Urine 2+ (Negative); Leukocyte Esterase,Urine Large (Negative); Mucus,Urine Many /hpf; Nitrite,Urine Negative (Negative); Protein,Urine 1+ (Negative); RBC,Urine 76 /hpf (0-5); Specific Gravity,Urine 1.021 (1.001-1.035); WBC,Urine >182 /hpf (0-5)
[2023-11-27] MEDS: FAMOTIDINE 20 MG TAB PO SCH (06:39)
[2023-11-27] MEDS: METOPROLOL TARTRATE 25 MG TAB PO SCH (08:18)
[2023-11-27] MEDS: levETIRAcetam 500 MG TAB PO SCH (08:18)
[2023-11-27 10:54] LABS: African American GFR (CKD) >90 (>60 ml/min/1.73 sqM); Anion Gap 2 mmol/L; Blood Urea Nitrogen 9 mg/dL (7-17); Calcium 8.2 mg/dL (8.4-10.2); Carbon Dioxide 25 mmol/L (22-30); Chloride 109 mmol/L (98-107); Glucose 89 mg/dL (74-99); Non-African American GFR(CKD) >90 (>60 ml/min/1.73 sqM); Potassium 3.8 mmol/L (3.5-5.1); Sodium 136 mmol/L (137-145)
--- NOTE | 2023-11-27 12:22 | P.CRDCN ---
History of Present Illness Consult date: 11/27/23 Reason for Consult (text): Elevated troponin History of present illness: History of present illness: This is a 78-year-old female with past medical history of hyperlipidemia, hypertension, CVA. We have been asked to evaluate the patient for elevated troponins. [facility] to [facility] status changes and urinary tract infection. Patient is having hallucinations and unable to obtain any accurate information from her. EKG sinus rhythm with nonspecific ST-T wave changes and PACs no sign of atrial fibrillation. Chest x-ray: No acute process CBC within normal limits. INR 1. Sodium 136, potassium initially 2.9 is been replaced and repeat 3.8, chloride 109, CO2 25, BUN 9 and creatinine 0.24. Troponins 0.045, 0.029 and 0.022. Liver function test are normal. Urinalysis positive for urinary tract infection. Home cardiac medications: Atorvastatin 40 mg at bedtime, Lopressor 25 mg twice daily. Review Of Systems: At the time of my exam: Unable to obtain due to patient's mental status Physical examination: Gen: This is a 78-year-old in no acute distress VS: reviewed blood pressure 116/73, heart rate 81, pulse ox 94% on room air. HEENT: Head is atraumatic, normocephalic. Pupils equal, round. Sclerae is anicte isacc. NECK: Supple. No JVD. LUNGS: Clear to auscultation. No wheezes or rhonchi. No intercostal re tractions. HEART: Irregular rate and rhythm. No murmur. ABDOMEN: Soft No tenderness. EXTREMITIES: No pedal edema. No calf tenderness. NEUROLOGICAL: Patient is awake, confused. Assessment: Elevated troponin secondary to sepsis Urinary tract infection and sepsis Metabolic encephalopathy Hypertension Hyperlipidemia CVA history Plan: Resume patient's home cardiac medications Obtain 2-D echocardiogram and Doppler study to assess cardiac structure and function Continue treatment for sepsis Further recommendations to follow based upon clinical course Thank you kindly for this consultation. Nurse practitioner note has been reviewed, I agree with documented findings and plan of care. Patient was seen and examined. Past Medical History Past Medical History: CVA/TIA, GERD/Reflux, Hyperlipidemia, Hypertension, Osteoarthritis (OA) Additional Past Medical History / Comment(s): left arm and leg weakness, some slurred speech History of Any Multi-Drug Resistant Organisms: None Reported Past Surgical History: Orthopedic Surgery Additional Past Surgical History / Comment(s): right arm rotator cuff surgery, PEG tube Past Anesthesia/Blood Transfusion Reactions: No Reported Reaction Past Psychological History: Depression Smoking Status: Never smoker Past Alcohol Use History: None Reported Past Drug Use History: None Reported Medications and Allergies Home Medications Medication Instructions Recorded Confirmed Type Atorvastatin [Lipitor] 40 mg PO HS 09/26/23 11/26/23 History Famotidine [Pepcid] 20 mg PO DAILY@0600 09/26/23 11/26/23 History Metoprolol Tartrate [Lopressor] 25 mg PO BID@0800,1700 09/26/23 11/26/23 History Sertraline [Zoloft] 75 mg PO HS 10/30/23 11/26/23 History Acetaminophen Tab [Tylenol] 650 mg PO Q6HR PRN tab 11/03/23 11/26/23 Rx Cefuroxime [Ceftin] 250 mg PO BID@0800,1700 11/26/23 11/26/23 History Ensure Enlive 120 - 237 ml PO BID@0800,1700 11/26/23 11/26/23 History Magnesium Hydroxide [Milk of 7,200 mg PO DIRECTED PRN 11/26/23 11/26/23 History Magnesia Concentrate] Na Phos,M-B/Na Phos,Di-Ba [Fleet 133 ml RECTAL DAILY PRN 11/26/23 11/26/23 History Adult] Nystatin 100,000 Unit/gm Powd 1 applic TOPICAL TID PRN 11/26/23 11/26/23 History [Mycostatin Powder] QUEtiapine FUMARATE [SEROquel] 25 mg PO HS 11/26/23 11/26/23 History bisacodyL [Dulcolax] 10 mg RECTAL DAILY PRN 11/26/23 11/26/23 History levETIRAcetam [Keppra] 500 mg PO Q12HR@0800,2100 11/26/23 11/26/23 History Allergies Allergy/AdvReac Type Severity Reaction Status Date / Time No Known Allergies Allergy Verified 11/26/23 19:48 Physical Exam Vitals: Vital Signs Temp Pulse Resp BP Pulse Ox 11/27/23 05:30 75 16 105/61 96 11/27/23 04:26 97.8 F 73 18 110/88 95 11/27/23 03:00 66 17 199/74 94 L 11/27/23 02:00 77 20 110/74 95 11/27/23 01:00 66 18 108/66 95 11/27/23 00:00 80 15 99/65 95 11/26/23 23:10 85 17 121/83 11/26/23 23:00 90 18 121/83 96 11/26/23 22:00 91 20 120/94 95 11/26/23 21:00 90 16 114/99 95 11/26/23 20:40 85 18 117/94 95 11/26/23 19:48 98.2 F 89 16 82/72 96 Intake and Output 11/26/23 11/27/23 11/27/23 22:59 06:59 14:59 Other: Weight 72.575 kg Results 11/26/23 21:45 11/27/23 10:21 Cardiac Enzymes 11/26/23 11/26/23 11/27/23 Range/Units 21:45 21:45 05:02 AST 23 (14-36) U/L Troponin I 0.045 H* 0.029 (0.000-0.034) ng/mL Coagulation 11/26/23 Range/Units 21:45 PT 11.2 (10.0-12.5) sec APTT 24.3 (22.0-30.0) sec CBC 11/26/23 Range/Units 21:45 WBC 9.5 (3.8-10.6) k/uL RBC 4.63 (3.80-5.40) m/uL Hgb 13.3 (11.4-16.0) gm/dL Hct 40.9 (34.0-46.0) % Plt Count 249 (150-450) k/uL Comprehensive Metabolic Panel 11/26/23 Range/Units 21:45 Sodium 138 (137-145) mmol/L Potassium 2.9 L (3.5-5.1) mmol/L Chloride 103 (98-107) mmol/L Carbon Dioxide 29 (22-30) mmol/L BUN 13 (7-17) mg/dL Creatinine 0.37 L (0.52-1.04) mg/dL Glucose 94 (74-99) mg/dL Calcium 8.8 (8.4-10.2) mg/dL AST 23 (14-36) U/L ALT 12 (4-34) U/L Alkaline Phosphatase 90 (38-126) U/L Total Protein 5.9 L (6.3-8.2) g/dL Albumin 3.2 L (3.5-5.0) g/dL Current Medications Generic Name Dose Route Start Last Admin Trade Name Freq PRN Reason Stop Dose Admin Acetaminophen 650 mg 11/27/23 00:13 Acetaminophen Tab 325 Mg Tab PO Q6HR PRN Mild Pain or Fever > 100.5 Atorvastatin Calcium 40 mg 11/27/23 21:00 Atorvastatin 40 Mg Tab PO HS KAYLEIGH Famotidine 20 mg 11/27/23 06:00 11/27/23 06:39 Famotidine 20 Mg Tab PO 20 mg DAILY@0600 KAYLEIGH Administration Levetiracetam 500 mg 11/27/23 08:00 11/27/23 08:18 Levetiracetam 500 Mg Tab PO 500 mg Q12HR@0800,2100 KAYLEIGH Administration Metoprolol Tartrate 25 mg 11/27/23 08:00 11/27/23 08:18 Metoprolol Tartrate 25 Mg Tab PO 25 mg BID@0800,1700 KAYLEIGH Administration Miscellaneous Information 1 each 11/26/23 22:31 Potassium Replacement Protocol 1 Each Misc MISCELLANE DAILY PRN Per Protocol Protocol Naloxone HCl 0.2 mg 11/27/23 00:13 Naloxone 0.4 Mg/Ml 1 Ml Vial IV Q2M PRN Opioid Reversal Quetiapine Fumarate 25 mg 11/27/23 21:00 Quetiapine 25 Mg Tab PO HS KAYLEIGH Sertraline HCl 75 mg 11/27/23 21:00 Sertraline 50 Mg Tab PO HS KAYLEIGH Intake and Output 11/26/23 11/27/23 11/27/23 22:59 06:59 14:59 Other: Weight 72.575 kg 11/26/23 21:45 11/26/23 21:45
--- NOTE | 2023-11-27 14:55 | CA ---
Transthoracic Echo Report Name: Opal Mejia Age: 78 Gender: F : 1945 Exam Date: 11/27/2023 12:00 Exam Location: [facility] Ht (in): 63 Wt (lb): 160 Ordering Physician: Chio Diez Attending/Referring Phys: [id number], Chary Drawer In [employer] Jeremy Carver RDCS Procedure CPT: Indications: LVF Cardiac Hx: Technical Quality: Fair Contrast 1: Total Dose (mL): Contrast 2: Total Dose (mL): MEASUREMENTS (Male / Female) Normal Values 2D ECHO LV Diastolic Diameter PLAX 4.0 cm 4.2 - 5.9 / 3.9 - 5.3 cm LV Systolic Diameter PLAX 2.9 cm IVS Diastolic Thickness 0.8 cm 0.6 - 1.0 / 0.6 - 0.9 cm LVPW Diastolic Thickness 1.0 cm 0.6 - 1.0 / 0.6 - 0.9 cm LV Relative Wall Thickness 0.5 RV Internal Dim ED PLAX 3.6 cm LVOT Diameter 2.1 cm Aortic Root Diameter 3.0 cm LV Diastolic Volume MOD BP 35.6 cm??? 67 - 155 / 56 - 104 cm??? LV Systolic Volume MOD BP 19.8 cm??? 22 - 58 / 19 - 49 cm??? LV Ejection Fraction MOD BP 44.5 % >= 55 % LV Cardiac Index MOD BP 619.4 cm???/min???m??? LV Diastolic Volume MOD 4C 33.3 cm??? LV Systolic Volume MOD 4C 17.7 cm??? LV Ejection Fraction MOD 4C 46.8 % LV Cardiac Index MOD 4C 608.8 cm???/min???m??? LV Diastolic Length 4C 6.8 cm LV Systolic Length 4C 6.1 cm LV Diastolic Volume MOD 2C 37.3 cm??? LV Systolic Volume MOD 2C 21.9 cm??? LV Ejection Fraction MOD 2C 41.3 % LV Cardiac Index MOD 2C 600.8 cm???/min???m??? LV Diastolic Length 2C 6.6 cm LV Systolic Length 2C 6.0 cm LA Volume 31.7 cm??? 18 - 58 / 22 - 52 cm??? LA Volume Index 17.5 cm???/m??? 16 - 28 cm???/m??? DOPPLER AV Peak Velocity 126.9 cm/s AV Peak Gradient 6.4 mmHg AV Mean Velocity 90.1 cm/s AV Mean Gradient 3.7 mmHg AV Velocity Time Integral 21.5 cm AI Peak Velocity 409.3 cm/s AI Peak Gradient 67.0 mmHg AI Pressure Half Time 694.6 ms LVOT Peak Velocity 57.7 cm/s LVOT Peak Gradient 1.3 mmHg LVOT Velocity Time Integral 10.8 cm LVOT Stroke Volume 37.6 cm??? LVOT Stroke Volume Index 21.4 ml/m??? LVOT Cardiac Index 1469.7 cm???/min???m??? AV Area Cont Eq vti 1.7 cm??? AV Area Cont Eq pk 1.6 cm??? MV Peak Velocity 89.4 cm/s MV Peak Gradient 3.2 mmHg MV Mean Velocity 45.5 cm/s MV Mean Gradient 1.0 mmHg MV Velocity Time Integral 27.7 cm Mitral E Point Velocity 70.7 cm/s Mitral A Point Velocity 98.8 cm/s Mitral E to A Ratio 0.7 MV Deceleration Time 214.3 ms TR Peak Velocity 243.0 cm/s TR Peak Gradient 23.6 mmHg Right Ventricular Systolic Press 28.6 mmHg PV Peak Velocity 68.0 cm/s PV Peak Gradient 1.8 mmHg FINDINGS Left Ventricle Normal LV size and wall thickness. Left ventricular ejection fraction is estimated at 50-55 %. Right Ventricle Normal right ventricular size. Right Atrium Normal right atrial size. Left Atrium Normal left atrial size. Mitral Valve Structurally normal mitral valve. Aortic Valve Trileaflet aortic valve. Mild calcification. Moderate AI. No aortic stenosis. Tricuspid Valve Structurally normal tricuspid valve. Mild to moderate TR. Pulmonic Valve Structurally normal pulmonic valve. Moderate PI. Pericardium Normal pericardium. Aorta Normal size aortic root. CONCLUSIONS Left ventricular ejection fraction 50-55% Mild mitral aortic calcification Moderate aortic insufficiency Mild to moderate tricuspid regurgitation No pericardial effusion Previewed by: Dr. Deondre Palomares DO (Electronically Signed) Final Date: 27 November 2023 14:54
[2023-11-27] MEDS: ALPRAZolam 0.25 MG TAB PO STA (18:54)
--- NOTE | 2023-11-27 18:58 | P.HPIM ---
History of Present Illness H&P Date: 11/27/23 Chief Complaint: Altered mental status/UTI 78-year-old female with History of CVA, A-fib, hyperlipidemia, hypertension sent from [facility] for UTI. I am told by nursing staff who obtained information from EMS, that the facility has difficulty with giving the patient oral medication. The physician recommended she be sent to the ER for IV antibiotics. I am told she has had increased confusion, hallucinations, and combativeness. At this time she is calm and cooperative, still hallucinating. Her daughter at bedside is able to calm her. She denies any chest pain, difficulty breathing, abdominal pain, nausea. Blood work completed in ED reveals a WBC of 9.5, hemoglobin of 13.3 and platelet count of 249, sodium 138, potassium 2.9, BUN/creatinine of 13/0.37 and blood glucose of 94, troponin is elevated at 0.045 and UA is positive Review of Systems REVIEW OF SYSTEMS: CONSTITUTIONAL: No fever, no malaise, no fatigue. HEENT: No recent visual problems or hearing problems. Denied any sore throat. CARDIOVASCULAR: No chest pain, orthopnea, PND, no palpitations, no syncope. PULMONARY: No shortness of breath, no cough, no hemoptysis. GASTROINTESTINAL: No diarrhea, no nausea, no vomiting, no abdominal pain. NEUROLOGICAL: No headaches, no weakness, no numbness. HEMATOLOGICAL: Denies any bleeding or petechiae. GENITOURINARY: Denies any burning micturition, frequency, or urgency. MUSCULOSKELETAL/RHEUMATOLOGICAL: Denies any joint pain, swelling, or any muscle pain. ENDOCRINE: Denies any polyuria or polydipsia. The rest of the 14-point review of systems is negative. Past Medical History Past Medical History: CVA/TIA, GERD/Reflux, Hyperlipidemia, Hypertension, Osteoarthritis (OA) Additional Past Medical History / Comment(s): left arm and leg weakness, some slurred speech History of Any Multi-Drug Resistant Organisms: None Reported Past Surgical History: Orthopedic Surgery Additional Past Surgical History / Comment(s): right arm rotator cuff surgery, PEG tube Past Anesthesia/Blood Transfusion Reactions: No Reported Reaction Past Psychological History: Depression Smoking Status: Never smoker Past Alcohol Use History: None Reported Past Drug Use History: None Reported Medications and Allergies Home Medications Medication Instructions Recorded Confirmed Type Atorvastatin [Lipitor] 40 mg PO HS 09/26/23 11/26/23 History Famotidine [Pepcid] 20 mg PO DAILY@0600 09/26/23 11/26/23 History Metoprolol Tartrate [Lopressor] 25 mg PO BID@0800,1700 09/26/23 11/26/23 History Sertraline [Zoloft] 75 mg PO HS 10/30/23 11/26/23 History Acetaminophen Tab [Tylenol] 650 mg PO Q6HR PRN tab 11/03/23 11/26/23 Rx Cefuroxime [Ceftin] 250 mg PO BID@0800,1700 11/26/23 11/26/23 History Ensure Enlive 120 - 237 ml PO BID@0800,1700 11/26/23 11/26/23 History Magnesium Hydroxide [Milk of 7,200 mg PO DIRECTED PRN 11/26/23 11/26/23 History Magnesia Concentrate] Na Phos,M-B/Na Phos,Di-Ba [Fleet 133 ml RECTAL DAILY PRN 11/26/23 11/26/23 History Adult] Nystatin 100,000 Unit/gm Powd 1 applic TOPICAL TID PRN 11/26/23 11/26/23 History [Mycostatin Powder] QUEtiapine FUMARATE [SEROquel] 25 mg PO HS 11/26/23 11/26/23 History bisacodyL [Dulcolax] 10 mg RECTAL DAILY PRN 11/26/23 11/26/23 History levETIRAcetam [Keppra] 500 mg PO Q12HR@0800,2100 11/26/23 11/26/23 History Allergies Allergy/AdvReac Type Severity Reaction Status Date / Time No Known Allergies Allergy Verified 11/26/23 19:48 Physical Exam Vitals: Vital Signs Temp Pulse Pulse Resp BP BP Pulse Ox 11/27/23 08:00 97.5 F L 81 16 116/73 94 L 11/27/23 05:30 75 16 105/61 96 11/27/23 04:26 97.8 F 73 18 110/88 95 11/27/23 03:00 66 17 199/74 94 L 11/27/23 02:00 77 20 110/74 95 11/27/23 01:00 66 18 108/66 95 11/27/23 00:00 80 15 99/65 95 11/26/23 23:10 85 17 121/83 11/26/23 23:00 90 18 121/83 96 11/26/23 22:00 91 20 120/94 95 11/26/23 21:00 90 16 114/99 95 11/26/23 20:40 85 18 117/94 95 11/26/23 19:48 98.2 F 89 16 82/72 96 Intake and Output 11/26/23 11/27/23 11/27/23 22:59 06:59 14:59 Other: Weight 72.575 kg Limitations: altered mental status General appearance: alert, in no apparent distress Head exam: Present: atraumatic, normocephalic Eye exam: Present: normal appearance, EOMI Neck exam: Present: normal inspection Respiratory exam: Present: normal lung sounds bilaterally. Absent: respiratory distress, wheezes, rales, rhonchi, stridor Cardiovascular Exam: Present: regular rate, normal rhythm, normal heart sounds. Absent: systolic murmur, diastolic murmur, rubs, gallop, clicks Extremities exam: Present: normal inspection Neurological exam: Present: alert, altered Results CBC & Chem 7: 11/26/23 21:45 11/27/23 10:21 Labs: Abnormal Lab Results - Last 24 Hours (Table) 11/26/23 11/26/23 11/27/23 Range/Units 21:45 21:45 01:58 Sodium (137-145) mmol/L Potassium 2.9 L (3.5-5.1) mmol/L Chloride (98-107) mmol/L Creatinine 0.37 L (0.52-1.04) mg/dL Calcium (8.4-10.2) mg/dL Troponin I 0.045 H* (0.000-0.034) ng/mL Total Protein 5.9 L (6.3-8.2) g/dL Albumin 3.2 L (3.5-5.0) g/dL Urine Appearance Turbid H (Clear) Urine Protein 1+ H (Negative) Urine Ketones 2+ H (Negative) Urine Blood Moderate H (Negative) Ur Leukocyte Esterase Large H (Negative) Urine RBC 76 H (0-5) /hpf Urine WBC >182 H (0-5) /hpf Urine WBC Clumps Few H (None) /hpf Urine Bacteria Occasional H (None) /hpf Hyaline Casts 48 H (0-2) /lpf Urine Mucus Many H (None) /hpf 11/27/23 Range/Units 10:21 Sodium 136 L (137-145) mmol/L Potassium (3.5-5.1) mmol/L Chloride 109 H (98-107) mmol/L Creatinine 0.24 L (0.52-1.04) mg/dL Calcium 8.2 L (8.4-10.2) mg/dL Troponin I (0.000-0.034) ng/mL Total Protein (6.3-8.2) g/dL Albumin (3.5-5.0) g/dL Urine Appearance (Clear) Urine Protein (Negative) Urine Ketones (Negative) Urine Blood (Negative) Ur Leukocyte Esterase (Negative) Urine RBC (0-5) /hpf Urine WBC (0-5) /hpf Urine WBC Clumps (None) /hpf Urine Bacteria (None) /hpf Hyaline Casts (0-2) /lpf Urine Mucus (None) /hpf Assessment and Plan Assessment: 1. Altered mental status; multifactorial likely related to UTI and electrolyte imbalance 2. Elevated troponin; rule out acute coronary syndrome -Patient has been admitted to telemetry; monitor EKG and trend troponin; troponin trend remains flat -- Cardiology has been consulted 3. UTI; patient has received Rocephin 1 g IV; will continue every 24 hours; further recommendations once urine culture is available 4. Hypokalemia; supplemented in ED; will monitor electrolytes closely and supplement as needed 5. Hypertension; metoprolol 25 mg twice daily 6. Hyperlipidemia; Lipitor 40 mg nightly 7. Seizure disorder; Keppra 500 mg every 12 hours 8. CVA/TIA; patient is on statin therapy; not on any aspirin 9. Depression; Zoloft 75 mg daily along with Seroquel 25 mg nightly DVT prophylaxis; SCDs/subcu heparin CODE STATUS; DNR
[2023-11-27] MEDS: SERTRALINE 50 MG TAB PO SCH (23:00)
[2023-11-27] MEDS: QUEtiapine 25 MG TAB PO SCH (23:00)
[2023-11-27] MEDS: ATORVASTATIN 40 MG TAB PO SCH (23:00)
[2023-11-28] MEDS: ACETAMINOPHEN TAB 325 MG TAB PO PRN (06:24)
[2023-11-28] MEDS: ASPIRIN 81 MG PO SCH (09:05)
--- NOTE | 2023-11-28 09:31 | P.PN ---
Subjective HISTORY OF PRESENT ILLNESS: This is a 78-year-old female with past medical history of hyperlipidemia, hypertension, CVA. We have been asked to evaluate the patient for elevated troponins. [facility] due to mental status changes and urinary tract infection. Patient is having hallucinations and unable to obtain any accurate information from her. EKG sinus rhythm with nonspecific ST-T wave changes and PACs no sign of atrial fibrillation. Chest x-ray: No acute process CBC within normal limits. INR 1. Sodium 136, potassium initially 2.9 is been replaced and repeat 3.8, chloride 109, CO2 25, BUN 9 and creatinine 0.24. Troponins 0.045, 0.029 and 0.022. Liver function test are normal. Urinalysis positive for urinary tract infection. Home cardiac medications: Atorvastatin 40 mg at bedtime, Lopressor 25 mg twice daily. 11/28/2023 Patient examined this morning at the bedside. Patient remains confused. She denies any shortness of breath. She complains of some vague chest discomfort this morning. She is receiving antibiotics secondary to UTI. Echocardiogram completed revealing EF 50 to 55%, no obvious wall motion abnormalities, mild to moderate TR, moderate AI. PHYSICAL EXAM: VITAL SIGNS: Reviewed. GENERAL: Well-developed in no acute distress. NECK: Supple. No JVD or thyromegaly LUNGS: Respirations even and unlabored. Lungs essentially clear to auscultation bilaterally. HEART: Regular rate and rhythm. S1 and S2 heard. EXTREMITIES: Normal range of motion. No clubbing or cyanosis. Peripheral pul ses intact. No lower extremity edema ASSESSMENT: Elevated troponin secondary to sepsis, type II [place] Urinary tract infection and sepsis Metabolic encephalopathy Hypertension Hyperlipidemia CVA history PLAN: Continue current cardiac medications Add aspirin 81 mg daily Treatment of sepsis per primary medicine Further recommendations pending patient course Nurse practitioner note has been reviewed by physician. Signing provider agrees with the documented findings, assessment, and plan of care documented by PRINTING SCREEN ASSEMBLER as a scribe. Objective - Vital Signs Vital signs: Vital Signs Temp 97.5 F L 11/28/23 07:05 Pulse 71 11/28/23 07:05 Resp 17 11/28/23 07:05 BP 109/68 11/28/23 07:05 Pulse Ox 93 L 11/28/23 07:05 FiO2 Intake & Output 11/27/23 11/28/23 11/28/23 18:59 06:59 18:59 Intake Total 420 Balance 420 Weight 73 kg Intake: Oral 420 Other: Voiding Method Diaper Incontinent # Voids 1 # Bowel Movements 1 - Labs CBC & Chem 7: 11/26/23 21:45 11/27/23 10:21 Labs: Abnormal Lab Results - Last 24 Hours (Table) 11/27/23 Range/Units 10:21 Sodium 136 L (137-145) mmol/L Chloride 109 H (98-107) mmol/L Creatinine 0.24 L (0.52-1.04) mg/dL Calcium 8.2 L (8.4-10.2) mg/dL Microbiology - Last 24 Hours (Table) 11/26/23 21:45 Blood Culture - Preliminary Blood 11/26/23 21:45 Blood Culture - Preliminary Blood
[2023-11-28 14:15] VITALS: BP 112/71; PULSE 78; RESP 18; TEMP 98.2
[2023-11-28] MEDS: METOPROLOL TARTRATE 25 MG TAB PO STA (18:27)
[2023-11-28] MEDS: ONDANSETRON 4 MG/2 ML VIAL IVP PRN (19:24)
[2023-11-28] MEDS: SODIUM CHLORIDE 0.9% 500 ML 500 ML IV ONE (19:26)
[2023-11-28] MEDS: SODIUM CHLORIDE 0.9% 1,000 ML IV SCH (19:27)
[2023-11-28] MEDS ORDERED: ALBUMIN HUMAN 5% 500 ML in EMPTY BAG 1 BAG IVPB ONE (19:39)
[2023-11-28] MEDS ORDERED: MIDODRINE 5 MG TAB PO STA (19:40)
[2023-11-28] MEDS ORDERED: DILTIAZEM 125 MG in SODIUM CHLORIDE 0.9% 100 ML IV SCH (19:45)
[2023-11-28] MEDS ORDERED: LORazepam 2 MG/ML INJ IV PRN (19:46)
[2023-11-28] MEDS ORDERED: MORPHINE SULFATE 4 MG/ML SYRINGE IVP PRN (19:47)
--- NOTE | 2023-11-28 20:18 | XR ---
EXAMINATION TYPE: XR KUB portable DATE OF EXAM: 11/28/2023 7:36 PM CLINICAL INDICATION:Female, 78 years old with history of possible obstruction; COMPARISON: None. TECHNIQUE: One radiographic view of the abdomen was obtained. FINDINGS: The bowel gas pattern is nonspecific without dilated loops of small or large bowel. There i s no evidence for organomegaly or pneumoperitoneum. The osseous structures are intact. No abnormal calcifications are present. Fecal material and gas are demonstrated throughout the colon and rectum. Multilevel degeneration changes throughout the spine. Degeneration changes of the hips. IMPRESSION: Nonspecific bowel gas pattern without radiographic evidence for acute process.
--- NOTE | 2023-11-28 20:35 | P.PN ---
Subjective Progress Note Date: 11/28/23 78-year-old female with History of CVA, A-fib, hyperlipidemia, hypertension sent from [facility] for UTI. I am told by nursing staff who obtained information from EMS, that the facility has difficulty with giving the patient oral medication. The physician recommended she be sent to the ER for IV antibiotics. I am told she has had increased confusion, hallucinations, and combativeness. At this time she is calm and cooperative, still hallucinating. Her daughter at bedside is able to calm her. She denies any chest pain, difficulty breathing, abdominal pain, nausea. Blood work completed in ED reveals a WBC of 9.5, hemoglobin of 13.3 and platelet count of 249, sodium 138, potassium 2.9, BUN/creatinine of 13/0.37 and blood glucose of 94, troponin is elevated at 0.045 and UA is positive --Patient has been evaluated by cardiology; elevated troponin deemed type II [place] secondary to sepsis; patient will continue with aspirin and current cardiac medications Objective - Vital Signs Vital signs: Vital Signs Temp 97.5 F L 11/28/23 07:05 Pulse 71 11/28/23 07:05 Resp 17 11/28/23 07:05 BP 109/68 11/28/23 07:05 Pulse Ox 93 L 11/28/23 07:05 FiO2 Intake & Output 11/27/23 11/28/23 11/28/23 18:59 06:59 18:59 Intake Total 420 Balance 420 Weight 73 kg Intake: Oral 420 Other: Voiding Method Diaper Incontinent # Voids 1 # Bowel Movements 1 - Exam Limitations: altered mental status General appearance: alert, in no apparent distress Head exam: Present: atraumatic, normocephalic Eye exam: Present: normal appearance, EOMI Neck exam: Present: normal inspection Respiratory exam: Present: normal lung sounds bilaterally. Absent: respiratory distress, wheezes, rales, rhonchi, stridor Cardiovascular Exam: Present: regular rate, normal rhythm, normal heart sounds. Absent: systolic murmur, diastolic murmur, rubs, gallop, clicks Extremities exam: Present: normal inspection Neurological exam: Present: alert, altered - Labs CBC & Chem 7: 11/26/23 21:45 11/27/23 10:21 Labs: Microbiology - Last 24 Hours (Table) 02/16/24 01:58 Urine Culture - Preliminary Urine,Voided Gram Neg Bacilli 11/26/23 21:45 Blood Culture - Preliminary Blood 11/26/23 21:45 Blood Culture - Preliminary Blood Assessment and Plan Assessment: 1. Altered mental status; multifactorial likely related to UTI and electrolyte imbalance 2. Elevated troponin; rule out acute coronary syndrome -Patient has been admitted to telemetry; monitor EKG and trend troponin; troponin trend remains flat -- Cardiology has been consulted 3. UTI; patient has received Rocephin 1 g IV; will continue every 24 hours; fur ther recommendations once urine culture is available 4. Hypokalemia; supplemented in ED; will monitor electrolytes closely and supplement as needed 5. Hypertension; metoprolol 25 mg twice daily 6. Hyperlipidemia; Lipitor 40 mg nightly 7. Seizure disorder; Keppra 500 mg every 12 hours 8. CVA/TIA; patient is on statin therapy; not on any aspirin 9. Depression; Zoloft 75 mg daily along with Seroquel 25 mg nightly DVT prophylaxis; SCDs/subcu heparin CODE STATUS; DNR
[2023-11-28] MEDS ORDERED: NYSTATIN 100,000 UNIT/GM POWD 15 GM TOPICAL SCH (22:00)
[2023-11-28] MEDS ORDERED: MIDODRINE 5 MG TAB PO SCH (22:00)
--- NOTE | 2023-12-02 09:21 | CDI ---
Documentation Clarification Form Date: 12/02/2023 09:08:14 AM From: Stacey Dewitt RN, CCDS Email: [email or web address] Admit Date: 11/27/2023 12:15:00 AM Patient Name: Opal Mejia Visit Number: [id number] Discharge Date: 11/28/2023 10:36:00 PM ATTENTION: The Clinical Documentation Specialists (CDI) and [facility] Coding Staff appreciate your assistance in clarifying documentation. Please respond to the clarification below the line at the bottom and electronically sign. The CDI & [facility] Coding staff will review the response and follow-up if needed. Please note: Queries are made part of the Legal Health Record. If you have any questions, please contact the author of this message via ITS. Dr. Antonio Chilel Atrial Fibrillation is documented in the ED note and the Nursing notes. Additional clarification regarding the type of atrial fibrillation is requested. History/Risk Factors: CVA/TIA, GERD, HLD, HTN, A fib and OA. Presented from [facility] with increased confusion, hallucinations and UTI. Admitted with Sepsis. Clinical Indicators: ED EKG: shows atrial fibrillation 11/27 Cardiology consult: "EKG sinus rhythm with nonspecific ST-T wave changes and PACs no sign of atrial fibrillation." 11/28 Nursing note: "Clarified history of A fib with patients daughter. She does have a history of this and according to the daughter she does flip in and out of this and A fib seems to occur more when she is sleeping from what she was told. Have had multiple calls from telemetry regarding her rhythm this evening. HR is tachy into the 110's at times. Notified Dr[address] Navarrete. He orders a onetime 25mg of po Metoprolol." 11/28 Nursing note: "Patient began to have A fib with RVR. Was briefly unresponsive, pale in color, vomiting. BP was 60's systolic. A fib with RVR continued and orders were obtained for Cardizem drip, Midodrine and Albumin. Family decided to make patient comfort care." Treatment: EKG/Telemetry monitoring; Metoprolol 25mg po BID 11/27-11/28 Please clarify the type of atrial fibrillation, if known: [ ] Chronic [ ] Permanent [ #### ] Paroxysmal [ ] Persistent [ ] Other, please specify [ ] Unable to determine MTDD
--- NOTE | 2023-12-02 10:23 | CDI ---
Documentation Clarification Form Date: 12/02/2023 10:16:59 AM From: Stacey Dewitt RN, CCDS Email: [email or web address] Admit Date: 11/27/2023 12:15:00 AM Patient Name: Opal Mejia Visit Number: [id number] Discharge Date: 11/28/2023 10:36:00 PM ATTENTION: The Clinical Documentation Specialists (CDI) and [facility] Coding Staff appreciate your assistance in clarifying documentation. Please respond to the clarification below the line at the bottom and electronically sign. The CDI & [facility] Coding staff will review the response and follow-up if needed. Please note: Queries are made part of the Legal Health Record. If you have any questions, please contact the author of this message via ITS. Dr. Antonio Chilel Your patient went into A fib with RVR and became hypotensive. Based on this information and the findings below, is there an additional diagnosis that is clinically appropriate for this patient? Patient history/risk factors: CVA/TIA, GERD, HLD, HTN, A fib and OA. Presented from [facility] with increased confusion, hallucinations and UTI. Admitted with Sepsis. Clinical Indicators: ED EKG: shows atrial fibrillation 11/27 Cardiology consult: "EKG sinus rhythm with nonspecific ST-T wave changes and PACs no sign of atrial fibrillation." 11/28 Nursing note: "Have had multiple calls from telemetry regarding her rhythm this evening. HR is tachycardic into the 110's at times. Notified Dr[address] Navarrete. He ordered a onetime 25mg of po Metoprolol." 11/28 A-team: "Dysrhythmia and hypotension. Patient vomiting and hypotensive. Abdomen is soft. Some mottling noted to right breast with low BP. Bolus given and mottling improved. BP improved. Dr. Chilel called." 11/28 Nursing note: "Patient began to have A fib with RVR. Was briefly unresponsive, pale in color, vomiting. BP was 60's systolic. 0.9 500cc bolus was given during A-team. A-team nurse felt that vomit smelled like feces. A fib with RVR continued and orders were obtained for Cardizem drip, Midodrine and Albumin. Patient became very pale and started to have agonal breathing. Family decided to make patient comfort care." Treatment: IV 0.9 NS 500 cc bolus on 11/28 then 0.9 NS @ 130mL/hr Is there an additional diagnosis that is clinically appropriate for this patient? [ ] Cardiogenic shock due to A fib with RVR [ ] No additional diagnosis/Not clinically significant [ #### ] Unable to determine [ ] Other, please specify MTDD
--- NOTE | 2023-12-27 18:21 | P.DS ---
Providers Date of admission: 11/27/23 00:15 Attending physician: Aissatou England Consults: 11/27/23 00:13 Consult Physician Urgent Consulting Provider: [facility] Consult Reason/Comments: elevated troponin Do you want consulting provider notified?: Yes, Notify in am Primary care physician: Omari Obregonqvi [facility] Course: 78-year-old female with History of CVA, A-fib, hyperlipidemia, hypertension sent from [facility] for UTI. I am told by nursing staff who obtained information from EMS, that the facility has difficulty with giving the patient oral medication. The physician recommended she be sent to the ER for IV antibiotics. I am told she has had increased confusion, hallucinations, and combativeness. At this time she is calm and cooperative, still hallucinating. Her daughter at bedside is able to calm her. She denies any chest pain, difficulty breathing, abdominal pain, nausea. Blood work completed in ED reveals a WBC of 9.5, hemoglobin of 13.3 and platelet count of 249, sodium 138, potassium 2.9, BUN/creatinine of 13/0.37 and blood glucose of 94, troponin is elevated at 0.045 and UA is positive --Patient has been evaluated by cardiology; elevated troponin deemed type II MN secondary to sepsis; patient will continue with aspirin and current cardiac medications 1. Altered mental status; multifactorial likely related to UTI and electrolyte imbalance 2. Elevated troponin; rule out acute coronary syndrome -Patient has been admitted to telemetry; monitor EKG and trend troponin; troponin trend remains flat -- Cardiology has been consulted 3. UTI; patient has received Rocephin 1 g IV; will continue every 24 hours; further recommendations once urine culture is available 4. Hypokalemia; supplemented in ED; will monitor electrolytes closely and supp lement as needed 5. Hypertension; metoprolol 25 mg twice daily 6. Hyperlipidemia; Lipitor 40 mg nightly 7. Seizure disorder; Keppra 500 mg every 12 hours 8. CVA/TIA; patient is on statin therapy; not on any aspirin 9. Depression; Zoloft 75 mg daily along with Seroquel 25 mg nightly Patient began to have afib rvr. Was briefly unresponsive, pale in color, vomiting. Ateam called. Daughter Candace called who did come to the hospital. Initially family wanted pt treated, making statements, "Don't leave me." Although they were informed how poorly she was doing. 0.9 500cc bolus was given during A-team. 0.9 at 130cc was started following that. First blood pressure was 60's systolic, however blood pressure was in 90's systolic following fluids. Ateam nurse felt that vomit smelled like feces, and order was obtained for KUB XR. Pt had large incontinent liquid bm as well during A-team. Afib rvr continued and orders were obtained for cardizem drip, midodrine, albumin and transfer to . While these orders were being put in pt became very pale and started to have agonal breathing. Family decided to make pt comfort care. Orders obtained for morphine IVP and ativan IVP. Pt before these could be given. Report given to Clementine PETERSEN, and she and I have provided therapeutic listening to family who are still at bedside. Patient Condition at Discharge: Fair Plan - Discharge Summary New Discharge Prescriptions: No Action Metoprolol Tartrate [Lopressor] 25 mg PO BID@0800,1700 Famotidine [Pepcid] 20 mg PO DAILY@0600 QUEtiapine FUMARATE [SEROquel] 25 mg PO HS Atorvastatin [Lipitor] 40 mg PO HS Sertraline [Zoloft] 75 mg PO HS Acetaminophen Tab [Tylenol] 650 mg PO Q6HR PRN tab PRN Reason: Fever And/ Or Pain Nystatin 100,000 Unit/gm Powd [Mycostatin Powder] 1 applic TOPICAL TID PRN PRN Reason: Skin Irritation Na Phos,M-B/Na Phos,Di-Ba [Fleet Adult] 133 ml RECTAL DAILY PRN PRN Reason: Constipation Magnesium Hydroxide [Milk of Magnesia Concentrate] 7,200 mg PO DIRECTED PRN PRN Reason: 2 days no BM levETIRAcetam [Keppra] 500 mg PO Q12HR@0800,2100 bisacodyL [Dulcolax] 10 mg RECTAL DAILY PRN PRN Reason: Constipation Ensure Enlive 120 - 237 ml PO BID@0800,1700 Cefuroxime [Ceftin] 250 mg PO BID@0800,1700 Discharge Medication List Atorvastatin [Lipitor] 40 mg PO HS 09/26/23 [History] Famotidine [Pepcid] 20 mg PO DAILY@0600 09/26/23 [History] Metoprolol Tartrate [Lopressor] 25 mg PO BID@0800,1700 09/26/23 [History] Sertraline [Zoloft] 75 mg PO HS 10/30/23 [History] Acetaminophen Tab [Tylenol] 650 mg PO Q6HR PRN tab 11/03/23 [Rx] Cefuroxime [Ceftin] 250 mg PO BID@0800,1700 11/26/23 [History] Ensure Enlive 120 - 237 ml PO BID@0800,1700 11/26/23 [History] Magnesium Hydroxide [Milk of Magnesia Concentrate] 7,200 mg PO DIRECTED PRN 11/26/23 [History] Na Phos,M-B/Na Phos,Di-Ba [Fleet Adult] 133 ml RECTAL DAILY PRN 11/26/23 [History] Nystatin 100,000 Unit/gm Powd [Mycostatin Powder] 1 applic TOPICAL TID PRN 11/26/23 [History] QUEtiapine FUMARATE [SEROquel] 25 mg PO HS 11/26/23 [History] bisacodyL [Dulcolax] 10 mg RECTAL DAILY PRN 11/26/23 [History] levETIRAcetam [Keppra] 500 mg PO Q12HR@0800,2100 11/26/23 [History] Follow up Appointment(s)/Referral(s): Omari Soto MD [Primary Care Provider] - 1-2 days Discharge Disposition: - Preliminary Cause of Preliminary Cause of : Acute coronary syndrome
--- NOTE | 2024-01-05 10:01 | CDI ---
Documentation Clarification Form Date: 12/02/2023 10:16:00 AM From: Stacey Dewitt RN, CCDS Email: [email or web address] Admit Date: 11/27/2023 12:15:00 AM Patient Name: Opal Mejia Visit Number: [id number] Discharge Date: 11/28/2023 10:36:00 PM ATTENTION: The Clinical Documentation Specialists (CDI) and [facility] Coding Staff appreciate your assistance in clarifying documentation. Please respond to the clarification below the line at the bottom and electronically sign. The CDI & [facility] Coding staff will review the response and follow-up if needed. Please note: Queries are made part of the Legal Health Record. If you have any questions, please contact the author of this message via ITS. Dr. Antonio Chilel Your patient went into A fib with RVR and became hypotensive. Based on this information and the findings below, is there an additional diagnosis that is clinically appropriate for this patient? Patient history/risk factors: CVA/TIA, GERD, HLD, HTN, A fib and OA. [facility] from [facility] with increased confusion, hallucinations and UTI. Admitted with Sepsis. Clinical Indicators: ED EKG: shows atrial fibrillation 11/27 Cardiology consult: "EKG sinus rhythm with nonspecific ST-T wave changes and PACs no sign of atrial fibrillation." 11/28 Nursing note: "Have had multiple calls from telemetry regarding her rhythm this evening. HR is tachycardic into the 110's at times. Notified Dr[address] Navarrete. He ordered a onetime 25mg of po Metoprolol." 11/28 A-team: "Dysrhythmia and hypotension. Patient vomiting and hypotensive. Abdomen is soft. Some mottling noted to right breast with low BP. Bolus given and mottling improved. BP improved. Dr. Chilel called." 11/28 Nursing note: "Patient began to have A fib with RVR. Was briefly unresponsive, pale in color, vomiting. BP was 60's systolic. 0.9 500cc bolus was given during A-team. A-team nurse felt that vomit smelled like feces. A fib with RVR continued and orders were obtained for Cardizem drip, Midodrine and Albumin. Patient became very pale and started to have agonal breathing. Family decided to make patient comfort care." Treatment: IV 0.9 NS 500 cc bolus on 11/28 then 0.9 NS @ 130mL/hr Is there an additional diagnosis that is clinically appropriate for this patient? [ ] Shock [ ] No additional diagnosis/Not clinically significant [@@@ ] Unable to determine [ ] Other, please specify MTDD
== END 2023-11-28 22:36 | disposition expired | DRG 871 ==
LOC: EC 19:33 → 3SCARD 11-27 00:15 → 4SSUR 11-27 14:50
PROVIDERS: ADMIT Hospitalist; ATTEND Hospitalist
DX: A41.9 Sepsis, unspecified organism (principal); G93.41 Metabolic encephalopathy; I21.A1 Myocardial infarction type 2; N39.0 Urinary tract infection, site not specified; R44.3 Hallucinations, unspecified; E87.6 Hypokalemia; E78.5 Hyperlipidemia, unspecified; F32.A Depression, unspecified; G40.909 Epilepsy, unspecified, not intractable, without status epilepticus; I10 Essential (primary) hypertension; I48.0 Paroxysmal atrial fibrillation; K21.9 Gastro-esophageal reflux disease without esophagitis; M19.90 Unspecified osteoarthritis, unspecified site; Z66 Do not resuscitate; R47.81 Slurred speech; Z79.899 Other long term (current) drug therapy; Z86.73 Personal history of transient ischemic attack (TIA), and cerebral infarction without residual deficits
CPT/HCPCS: 36415; 51798; 71046; 74018; 80048; 80053; 81001; 84484; 85025; 85610; 85730; 87040; 87077; 87086; 87186; 93005; 93306; 96361; 96365; 96366; 96375; 99285